=== PATIENT | male | born 1965 | race Caucasian/White ===

== ENCOUNTER 2020-03-07 09:26 | Outpatient (REF) | payer OTHER, SELFPAY ==
[2020-03-07 10:15] LABS: Basophils Percent Auto 0.4 % (0-2); Eosinophils Absolute Auto 0.3 X10*3/uL (0.0-0.4); Eosinophils Percent Auto 4.3 % (0-4); Hematocrit 40.3 % (42-52); Hemoglobin 13.3 g/dl (14.0-18.0); Imm Gran Abs Auto 0.05 X10*3/uL (0.00-0.03); Imm Gran Pct Auto 0.7 % (0.0-0.4); Lymphocytes Absolute Auto 1.5 X10*3/uL (1.2-4.9); Lymphocytes Percent Auto 20.6 % (20-40); Mean Corpuscular Volume 81.7 fL (80-98); Monocytes Absolute Auto 0.9 X10*3/uL (0.1-1.2); Monocytes Percent Auto 12.1 % (2-11); Neutrophils Absolute Auto 4.6 X10*3/uL (2.0-8.3); Neutrophils Percent Auto 61.9 % (45-73); Platelet Count 244 X10*3/uL (160-400); Red Blood Count 4.93 X10*6/uL (4.60-5.80); Red Cell Distribution Width 13.8 % (11.0-16.0); White Blood Count 7.5 X10*3/uL (4.8-10.8)
[2020-03-07 10:17] LABS: MANUAL DIFF FLAG NO
[2020-03-07 10:35] LABS: Alanine Aminotransferase 28 U/L (0-40); Albumin Level 4.5 g/dL (3.5-5.0); Alkaline Phosphatase 72 U/L (39-117); Anion Gap 15 (12-20); Aspartate Amino Transferase 16 U/L (5-37); Bilirubin Total 0.3 mg/dL (0.0-1.0); Blood Urea Nitrogen 15 mg/dL (9-16); Calcium 9.5 mg/dL (8.4-10.2); Carbon Dioxide 27 mmol/L (22-29); Chloride 96 mmol/L (96-108); Cholesterol 214 mg/dL; Estimated Glomerular Filt Rate > 60; Glucose Random 155 mg/dL (60-115); HDL Cholesterol 37 mg/dL; Phosphorus 2.5 mg/dL (2.7-4.5); Potassium 4.9 mmol/l (3.3-5.1); Sodium 133 mmol/L (135-145); Triglycerides 475 mg/dL
[2020-03-07 10:59] LABS: Thyroid Stimulating Hormone 2.31 uIU/mL (0.32-4.0); Vitamin D 25-OH Total 37.2 ng/mL (>30)
[2020-03-07 11:04] LABS: Estimated Average Glucose 140 mg/dL; Hemoglobin A1c % 6.5 %
== END 2020-03-07 09:27 | disposition home or self-care (01) ==
LOC: HO.LAB 09:26
PROVIDERS: PCP Internal Medicine; Visit Provider Internal Medicine
DX: Z00.01 Encounter for general adult medical examination with abnormal findings (principal); E11.65 Type 2 diabetes mellitus with hyperglycemia; E78.00 Pure hypercholesterolemia, unspecified; E83.52 Hypercalcemia; M79.18 Myalgia, other site; R80.9 Proteinuria, unspecified
CPT/HCPCS: 36415; 80053; 80061; 82306; 83036; 84100; 84443; 85025

== ENCOUNTER 2020-03-07 10:24 | Outpatient (REF) | payer OTHER, SELFPAY | END 2020-03-07 10:25 | disposition home or self-care (01) | LOC: HO.LAB 10:24 | PROVIDERS: PCP Internal Medicine; Visit Provider Internal Medicine | DX: Z20.828 Contact with and (suspected) exposure to other viral communicable diseases (principal) | CPT/HCPCS: C9803; U0003 ==

== ENCOUNTER 2020-04-20 14:05 | Outpatient (REF) | payer OTHER, SELFPAY | END 2020-04-20 14:06 | disposition home or self-care (01) | LOC: HO.HAP 14:05 | PROVIDERS: Visit Provider Internal Medicine | DX: Z46.1 Encounter for fitting and adjustment of hearing aid (principal); H90.3 Sensorineural hearing loss, bilateral | CPT/HCPCS: 92593; 99499 ==

== ENCOUNTER 2020-06-07 14:48 | Outpatient (REF) | payer OTHER, SELFPAY ==
[2020-06-07 15:44] LABS: MANUAL DIFF FLAG NO
[2020-06-07 15:52] LABS: Basophils Percent Auto 0.5 % (0-2); Eosinophils Absolute Auto 0.3 X10*3/uL (0.0-0.4); Eosinophils Percent Auto 4.3 % (0-4); Hematocrit 42.1 % (42-52); Hemoglobin 13.7 g/dl (14.0-18.0); Imm Gran Abs Auto 0.04 X10*3/uL (0.00-0.03); Imm Gran Pct Auto 0.6 % (0.0-0.4); Lymphocytes Absolute Auto 1.5 X10*3/uL (1.2-4.9); Lymphocytes Percent Auto 22.2 % (20-40); Mean Corpuscular HGB Conc 32.5 g/dl (31.0-36.0); Mean Corpuscular Hemoglobin 27.2 pg (27.0-33.0); Mean Corpuscular Volume 83.5 fL (80-98); Mean Platelet Volume 9.5 fL (9.4-12.4); Monocytes Absolute Auto 0.7 X10*3/uL (0.1-1.2); Monocytes Percent Auto 10.4 % (2-11); Neutrophils Absolute Auto 4.1 X10*3/uL (2.0-8.3); Platelet Count 251 X10*3/uL (160-400); Red Blood Count 5.04 X10*6/uL (4.60-5.80); Red Cell Distribution Width 13.8 % (11.0-16.0); White Blood Count 6.5 X10*3/uL (4.8-10.8)
[2020-06-07 16:00] LABS: Estimated Average Glucose 157 mg/dL; Hemoglobin A1c % 7.1 %
[2020-06-07 16:21] LABS: Alanine Aminotransferase 34 U/L (0-40); Albumin Level 4.7 g/dL (3.5-5.0); Alkaline Phosphatase 56 U/L (39-117); Anion Gap 17 (12-20); Aspartate Amino Transferase 24 U/L (5-37); Bilirubin Total 0.4 mg/dL (0.0-1.0); Blood Urea Nitrogen 22 mg/dL (9-16); Calcium 9.9 mg/dL (8.4-10.2); Carbon Dioxide 27 mmol/L (22-29); Chloride 97 mmol/L (96-108); Cholesterol 149 mg/dL; Estimated Glomerular Filt Rate 57; Glucose Random 141 mg/dL (60-115); HDL Cholesterol 35 mg/dL; LDL Cholesterol Calculated 46 mg/dl; Potassium 4.9 mmol/L (3.3-5.1); Sodium 136 mmol/L (135-145); Total Protein 7.2 g/dL (6.5-8.0); Triglycerides 342 mg/dL
[2020-06-07 17:40] LABS: Albumin Level 4.7 g/dL (3.5-5.0); Anion Gap 17 (12-20); Blood Urea Nitrogen 23 mg/dL (9-16); Carbon Dioxide 28 mmol/L (22-29); Chloride 96 mmol/L (96-108); Estimated Glomerular Filt Rate 56; Phosphorus 3.8 mg/dL (2.7-4.5); Potassium 4.9 mmol/L (3.3-5.1); Sodium 136 mmol/L (135-145)
[2020-06-07 18:02] LABS: Magnesium 1.4 mg/dL (1.6-2.6)
== END 2020-06-07 14:49 | disposition home or self-care (01) ==
LOC: HO.LAB 14:48
PROVIDERS: PCP Internal Medicine; Referring Provider Internal Medicine Hypertension Specialist; Visit Provider Internal Medicine
DX: E11.65 Type 2 diabetes mellitus with hyperglycemia (principal); I10 Essential (primary) hypertension; M79.18 Myalgia, other site; R80.8 Other proteinuria; R31.29 Other microscopic hematuria; E87.1 Hypo-osmolality and hyponatremia
CPT/HCPCS: 36415; 80051; 80053; 80061; 82040; 82310; 82565; 83036; 83735; 84100; 84520; 85025

== ENCOUNTER 2020-09-04 15:08 | Outpatient (REF) | payer OTHER, SELFPAY ==
[2020-09-04 15:52] LABS: Estimated Average Glucose 166 mg/dL; Hemoglobin A1c % 7.4 %
[2020-09-04 15:56] LABS: Alanine Aminotransferase 39 U/L (0-40); Albumin Level 4.8 g/dL (3.5-5.0); Alkaline Phosphatase 60 U/L (39-117); Anion Gap 15 (12-20); Aspartate Amino Transferase 26 U/L (5-37); Bilirubin Total 0.6 mg/dL (0.0-1.0); Blood Urea Nitrogen 20 mg/dL (9-16); Calcium 10.6 mg/dL (8.4-10.2); Carbon Dioxide 25 mmol/L (22-29); Chloride 97 mmol/L (96-108); Cholesterol 155 mg/dL; Estimated Glomerular Filt Rate > 60; Glucose Random 92 mg/dL (60-115); HDL Cholesterol 39 mg/dL; LDL Cholesterol Calculated 55 mg/dl; Potassium 4.4 mmol/L (3.3-5.1); Sodium 133 mmol/L (135-145); Total Protein 7.5 g/dL (6.5-8.0); Triglycerides 306 mg/dL
== END 2020-09-04 15:09 | disposition home or self-care (01) ==
LOC: HO.LAB 15:08
PROVIDERS: PCP Internal Medicine; Visit Provider Internal Medicine
DX: E11.65 Type 2 diabetes mellitus with hyperglycemia (principal); E78.2 Mixed hyperlipidemia; M67.02 Short Achilles tendon (acquired), left ankle; I10 Essential (primary) hypertension; M54.5 Low back pain; R80.8 Other proteinuria
CPT/HCPCS: 36415; 80053; 80061; 83036

== ENCOUNTER 2020-10-11 13:39 | Outpatient (REF) | payer OTHER, SELFPAY ==
--- NOTE | 2020-10-13 07:46 | MHC.AU.AHA ---
Adult Audiological Evaluation Date of Visit: 10/11/20 Information Management Manager Used: Not Applicable Reason for Appointment: Audiologic re-evaluation in order to determine possible change in hearing ability. Jed notes he needs to increase the volume of his hearing aids every day. Previous Hearing Test Results: 09/30/2018 [facility] Profound rising to severe mixed hearing loss bilaterally. Speech understanding of 64% for the right ear and 60% for the left ear. Ear History: History of Ear Wax Buildup: Both Ears Bothersome Tinnitus/Ringing/Noises in Ears: Both Ears Medical History: Medical History: Diabetes, Dizziness or Unsteadiness, Headache, High Blood Pressure, Stroke Medication List: Metformin, Hydrochlorothiazide, Loratidine, Metoprolol, Rosuvastatin, Irbesartan, Januvia, Multivitamin Hearing Instrument History- Right Ear: Collar Band Creaser: Phonak Model: Unique B 50-UP Serial Number: [id number] Battery Size: 675 Repair Warranty: 01/11/2022 Dispensed By: [facility] Date of Fittin11/09/2018 Hearing Instrument History- Left Ear: Collar Band Creaser: Phonak Model: Unique B 50-UP Serial Number: [id number] Battery Size: 675 Warranty: 01/11/2022 Dispensed By: [facility] Date of Fittin11/09/2018 Otoscopy: Right Ear: Unremarkable Left Ear: Unremarkable Tympanometry: Not performed at today's visit as previous testing has shown normal middle ear function bilaterally Hearing Evaluation: Transducer(s) Used: Insert Earphones Bone Conduction Method: Conventional Audiometry Stimuli Used: Pure Tones Right Ear: Description of Hearing: Profound rising to severe mixed hearing loss Left Ear: Description of Hearing: Profound rising to severe mixed hearing loss Speech Recognition Threshold (SRT): Method Used: Monitored Live Voice Stimuli Used: Spondee Words Right Ear: 75 dB HL Left Ear: 70 dB HL Word Discrimination: Method: Recorded Lists Word Lists Used: NU-6 Right Ear: 60% at 105 dB HL Left Ear: 40% at 105 dB HL 32% at 100 dB HL Most Comfortable Level (MCL): Right Ear: 105 dB HL Left Ear: 105 dB HL Comparison: Compared to the most recent evaluation: Hearing is stable and Word discrimination score has decreased in the left ear. Recommendations: Hearing aid maintenance performed today. Hearing aids reprogrammed to increase volume to Jed's preferred level. Audiological re-evaluation in one year. Will send a reminder card. Diagnosis: Primary Diagnosis: H90.6 Mixed Hearing Loss, Bilateral Services Performed: Comprehensive Audiological Evaluation (CPT 42772) Signature: Provider: Osmany Awad, CCC-A
== END 2020-10-11 13:40 | disposition home or self-care (01) ==
LOC: HO.SH 13:39
PROVIDERS: Visit Provider Internal Medicine
DX: H90.6 Mixed conductive and sensorineural hearing loss, bilateral (principal)
CPT/HCPCS: 92557

== ENCOUNTER 2020-10-18 11:47 | Outpatient (REF) | payer OTHER, SELFPAY ==
[2020-10-19 02:36] LABS: CT PCR NOT DETECTED (Not Detect.); NG PCR NOT DETECTED (Not Detect.)
[2020-10-19 11:44] LABS: HIV AB/AG Nonreactive (Nonreactive); HIV Num 1 0.06 S/CO (0.00-0.99)
[2020-10-23 00:46] LABS: Treponema pallidum Ab FTA ABS Nonreactive (Nonreactive)
== END 2020-10-18 11:48 | disposition home or self-care (01) ==
LOC: HO.LAB 11:47
PROVIDERS: PCP Internal Medicine; Visit Provider Internal Medicine
DX: Z11.3 Encounter for screening for infections with a predominantly sexual mode of transmission (principal); Z11.4 Encounter for screening for human immunodeficiency virus [HIV]; I10 Essential (primary) hypertension; Z72.53 High risk bisexual behavior
CPT/HCPCS: 86780; 87389; 87491; 87591

== ENCOUNTER 2020-11-18 00:21 | Emergency (ER) | payer OTHER, SELFPAY ==
[2020-11-18 00:24] VITALS: BP 154/92; PULSE 101; RESP 18; TEMP 36.3; O2SAT 98; BMI 27.5
[2020-11-18 00:37] LABS: Glucose, Whole Blood 170 mg/dL (60-115)
[2020-11-18 01:33] LABS: MANUAL DIFF FLAG NO
[2020-11-18 01:35] LABS: Basophils Percent Auto 0.3 % (0-2); Eosinophils Absolute Auto 0.3 X10*3/uL (0.0-0.4); Hematocrit 37.3 % (42-52); Hemoglobin 12.8 g/dl (14.0-18.0); Imm Gran Abs Auto 0.03 X10*3/uL (0.00-0.03); Imm Gran Pct Auto 0.4 % (0.0-0.4); Lymphocytes Absolute Auto 1.7 X10*3/uL (1.2-4.9); Lymphocytes Percent Auto 21.6 % (20-40); Mean Corpuscular HGB Conc 34.3 g/dl (31.0-36.0); Mean Corpuscular Hemoglobin 27.8 pg (27.0-33.0); Mean Corpuscular Volume 81.1 fL (80-98); Mean Platelet Volume 9.2 fL (9.4-12.4); Monocytes Absolute Auto 0.8 X10*3/uL (0.1-1.2); Monocytes Percent Auto 9.9 % (2-11); Neutrophils Absolute Auto 5.1 X10*3/uL (2.0-8.3); Neutrophils Percent Auto 63.8 % (45-73); Platelet Count 217 X10*3/uL (160-400); Red Cell Distribution Width 13.4 % (11.0-16.0); White Blood Count 7.9 X10*3/uL (4.8-10.8)
[2020-11-18 01:35] LABS: Glucose Urine UA NEG (NEG); Leukocyte Esterase Urine NEG (NEG); Nitrite Urine NEG (NEG); Urine Blood NEG (NEG); Urine Ketones NEG (NEG); Urine Protein NEG (NEG-TRACE)
[2020-11-18 01:36] LABS: Appearance Urine CLEAR; Color Urine YELLOW; UACC Culture Trigger NO
[2020-11-18 02:07] LABS: Alanine Aminotransferase 28 U/L (0-40); Albumin Level 4.3 g/dL (3.5-5.0); Alkaline Phosphatase 57 U/L (39-117); Anion Gap 15 (12-20); Aspartate Amino Transferase 21 U/L (5-37); Bilirubin Total 0.3 mg/dL (0.0-1.0); Blood Urea Nitrogen 16 mg/dL (9-16); Calcium 9.2 mg/dL (8.4-10.2); Carbon Dioxide 26 mmol/L (22-29); Chloride 90 mmol/L (96-108); Creatinine Clr Calc Pharmacy 63.9; Estimated Glomerular Filt Rate > 60; Glucose Random 184 mg/dL (60-115); Potassium 3.9 mmol/L (3.3-5.1); Sodium 127 mmol/L (135-145); Total Protein 6.9 g/dL (6.5-8.0)
--- NOTE | 2020-11-18 03:18 | ECG_ITS ---
Test Reason : DIZZINESS Blood Pressure : / mmHG Vent. Rate : 079 BPM Atrial Rate : 079 BPM P-R Int : 124 ms QRS Dur : 080 ms QT Int : 362 ms P-R-T Axes : 009 023 060 degrees QTc Int : 415 ms Normal sinus rhythm Normal ECG When compared with ECG of 07-APR-2015 06:46, No significant change was found Referred By: Ana Briggs Electronically Signed By:Ivan Saunders
--- NOTE | 2020-11-18 03:24 | ED.GENADULT ---
HPI - General Adult General Chief complaint: Dizziness Stated complaint: can't swallow, light headedness Time Seen by Provider: 11/18/20 01:52 Source: patient Mode of arrival: ambulatory Limitations: no limitations History of Present Illness HPI narrative: Patient comes emergency room complaining of dizziness. Patient states that whenever he moves his head up and down or right left, he feels a bit unsteady, when he is at rest not moving patient is completely asymptomatic. Patient states that earlier today around 15:00 he was eating [place] food, he nearly choked but was able to cough up the food. Then, 3 hours later he started having the dizziness episodes. Patient denies chest pain, no shortness of breath. Related Data Previous Rx's Medication Instructions Recorded meclizine 25 mg tablet 25 mg PO TID PRN #14 tab 11/18/20 Allergies Allergy/AdvReac Type Severity Reaction Status Date / Time No Known Allergies Allergy Verified 11/18/20 00:23 [No Known Allergies*] Review of Systems Review of Systems: Constitutional : No Weight loss, No Fever, No Chills, No Night Sweats, No Fatigue, No Malaise ENT/Mouth : No Hearing loss, No Ear Pain, No Nasal Congestion, No Sinus Pain, No Hoarseness, No sore throat, No Rhinorrhea, No Swallowing Difficulty Eyes: No Eye Pain, No Swelling, No Redness, No Foreign Body, No Discharge, No Vision Changes Cardiovascular : No Chest Pain, No SOB, No Dyspnea on Exertion, No Orthopnea, No Edema, No Palpitations Respiratory : No Cough, No Sputum, No Wheezing, No Smoke Exposure, No Dyspnea Gastrointestinal : No Nausea, No Vomiting, No Diarrhea, No Constipation, No abdominal Pain, No Hematochezia, No Melena Genitourinary : no irregular bleeding, No Dysuria, No Urinary Frequency, No Hematuria, No Urinary Incontinence, No Urgency, No Flank Pain, No Urinary Flow Changes, No Hesitancy Musculoskeletal : No joint pain, No Myalgias, No Joint Swelling Skin : No Skin Lesions, No rash Neuro : No Weakness, No Numbness, No Paresthesias, No Loss of Consciousness, complaining of dizziness with head movement, No Headache Psych : No Anxiety/Panic, No Depression, No SI/HI/AH/VH, No Social Issues, Heme/Lymph: No Bruising, No Bleeding,No Lymphadenopathy Endocrine : No Polyuria, No Polydipsia, No Temperature Intolerance [facility] Social History Social History Patient Tobacco Use Status: Never used Tobacco Advance Directives: No Physical Exam Vital Signs: Vital Signs: Last Vital Signs Temp 98.1 F 11/18/20 04:04 Pulse 75 11/18/20 04:07 Resp 15 11/18/20 04:04 BP 156/80 H 11/18/20 04:07 Pulse Ox 100 11/18/20 04:04 Body Mass Index 27.5 Const: Other: Appearance: Alert. Oriented X3. No acute distress. Eyes: Pupils equal, round and reactive to light. No nystagmus ENT: Pharynx normal. Neck: Normal inspection. Neck supple. No lymph nodes noted. No crepitus CVS: Normal heart rate and rhythm. Pulses normal. Normal S1 and S2 Respiratory: No respiratory distress. Breath sounds normal. No Wheezing. No rales Abdomen: Soft and nontender. No rigidity. No distention. good BS x4 Skin: Skin warm and dry. Normal skin color. Normal skin turgor. Extremities: No lower extremity edema. No lower extremity edema. No Lacerations. No Rash Neuro: Oriented X 3. No motor deficit. No sensory deficit. Moving all extermities. No slurred speech. Course Course Course Narrative: I discussed with the patient that his sodium is 127, we will go ahead and give him fluids, meclizine for the dizziness, and then repeat labs. second BMP results pending. Likely dc home, pt asymptomatic at this time. sign out given to Dr. Vidal Pt ambulatory with normal gait, is symptomatic Medical Decision Making Lab Data Result diagrams: 11/18/20 01:23 11/18/20 01:23 Labs: Lab Results 11/18/20 11/18/20 11/18/20 Range/Units 00:31 01:23 01:23 WBC 7.9 (4.8-10.8) X10*3/uL RBC 4.60 (4.60-5.80) X10*6/uL Hgb 12.8 L (14.0-18.0) g/dl Hct 37.3 L (42-52) % MCV 81.1 (80-98) fL MCH 27.8 (27.0-33.0) pg MCHC 34.3 (31.0-36.0) g/dl RDW 13.4 (11.0-16.0) % Plt Count 217 (160-400) X10*3/uL MPV 9.2 L (9.4-12.4) fL Immature Gran % (Auto) 0.4 (0.0-0.4) % Neut % (Auto) 63.8 (45-73) % Lymph % (Auto) 21.6 (20-40) % [place] % (Auto) 9.9 (2-11) % Eos % (Auto) 4.0 (0-4) % Baso % (Auto) 0.3 (0-2) % Lymph # (Auto) 1.7 (1.2-4.9) X10*3/uL [place] # (Auto) 0.8 (0.1-1.2) X10*3/uL Eos # (Auto) 0.3 (0.0-0.4) X10*3/uL Baso # (Auto) 0.0 (0.0-0.2) X10*3/uL Abs Immat Gran (auto) 0.03 (0.00-0.03) X10*3/uL Absolute Neuts (auto) 5.1 (2.0-8.3) X10*3/uL Absolute Nucleated RBC 0.000 (0.0-0.012) X10*3/uL Nucleated RBC % (auto) 0.0 (0.0-0.2) /100WBC Sodium 127 L (135-145) mmol/L Potassium 3.9 (3.3-5.1) mmol/L Chloride 90 L (96-108) mmol/L Carbon Dioxide 26 (22-29) mmol/L Anion Gap 15 (12-20) BUN 16 (9-16) mg/dL Creatinine 1.15 (0.5-1.4) mg/dL Estim Creat Clear Calc 63.9 Estimated GFR > 60 POC Glucose 170 H (60-115) mg/dL Random Glucose 184 H D (60-115) mg/dL Calcium 9.2 D (8.4-10.2) mg/dL Total Bilirubin 0.3 (0.0-1.0) mg/dL AST 21 (5-37) U/L ALT 28 (0-40) U/L Alkaline Phosphatase 57 (39-117) U/L Troponin I High Sens (<3.5-35.0) ng/L Total Protein 6.9 (6.5-8.0) g/dL Albumin 4.3 (3.5-5.0) g/dL Urine Color Urine Appearance Urine pH (5.0-8.0) Ur Specific [place] (1.005-1.025) Urine Protein (NEG-TRACE) MG/DL Urine Glucose (UA) (NEG) MG/DL Urine Ketones (NEG) MG/DL Urine Blood (NEG) Urine Nitrite (NEG) Ur Leukocyte Esterase (NEG) 11/18/20 11/18/20 Range/Units 01:23 01:29 WBC (4.8-10.8) X10*3/uL RBC (4.60-5.80) X10*6/uL Hgb (14.0-18.0) g/dl Hct (42-52) % MCV (80-98) fL MCH (27.0-33.0) pg MCHC (31.0-36.0) g/dl RDW (11.0-16.0) % Plt Count (160-400) X10*3/uL MPV (9.4-12.4) fL Immature Gran % (Auto) (0.0-0.4) % Neut % (Auto) (45-73) % Lymph % (Auto) (20-40) % [place] % (Auto) (2-11) % Eos % (Auto) (0-4) % Baso % (Auto) (0-2) % Lymph # (Auto) (1.2-4.9) X10*3/uL [place] # (Auto) (0.1-1.2) X10*3/uL Eos # (Auto) (0.0-0.4) X10*3/uL Baso # (Auto) (0.0-0.2) X10*3/uL Abs Immat Gran (auto) (0.00-0.03) X10*3/uL Absolute Neuts (auto) (2.0-8.3) X10*3/uL Absolute Nucleated RBC (0.0-0.012) X10*3/uL Nucleated RBC % (auto) (0.0-0.2) /100WBC Sodium (135-145) mmol/L Potassium (3.3-5.1) mmol/L Chloride (96-108) mmol/L Carbon Dioxide (22-29) mmol/L Anion Gap (12-20) BUN (9-16) mg/dL Creatinine (0.5-1.4) mg/dL Estim Creat Clear Calc Estimated GFR POC Glucose (60-115) mg/dL Random Glucose (60-115) mg/dL Calcium (8.4-10.2) mg/dL Total Bilirubin (0.0-1.0) mg/dL AST (5-37) U/L ALT (0-40) U/L Alkaline Phosphatase (39-117) U/L Troponin I High Sens 4.3 (<3.5-35.0) ng/L Total Protein (6.5-8.0) g/dL Albumin (3.5-5.0) g/dL Urine Color YELLOW Urine Appearance CLEAR Urine pH 6.0 (5.0-8.0) Ur Specific [place] 1.010 (1.005-1.025) Urine Protein NEG (NEG-TRACE) MG/DL Urine Glucose (UA) NEG (NEG) MG/DL Urine Ketones NEG (NEG) MG/DL Urine Blood NEG (NEG) Urine Nitrite NEG (NEG) Ur Leukocyte Esterase NEG (NEG) ECG Data Attestation: I personally reviewed and interpreted this ECG as follows: (Normal sinus rhythm, heart rate 79, no ST segment depression or elevation, no T-wave inversion, QTC 415) Discharge Plan Discharge Clinical Impression: Acute hyponatremia, Dizziness Patient Disposition: Home, Self-Care Instructions: Hyponatremia (ED), Dizziness (ED) Additional Instructions: Please follow-up with your primary care physician tomorrow. If you have any worsening or new symptoms, please return to the emergency room or call 911 Prescriptions: New meclizine 25 mg tablet 25 mg PO TID PRN (Reason: dizziness) Qty: 14 RF: 0
[2020-11-18] MEDS: Meclizine HCl 25 MG TABLET 50 MG PO (03:44)
[2020-11-18] MEDS: 0.9 % Sodium Chloride 1,000 ML 999 ML IVCONT (03:44)
[2020-11-18 03:49] LABS: Troponin-I High Sensitivity 4.3 ng/L (<3.5-35.0)
[2020-11-18 04:02] VITALS: BP 146/79; PULSE 75
[2020-11-18 04:04] VITALS: BP 146/79; PULSE 74; RESP 15; TEMP 36.7; O2SAT 100
[2020-11-18 04:06] VITALS: BP 153/90; PULSE 79
[2020-11-18 04:07] VITALS: BP 156/80; PULSE 75
--- NOTE | 2020-11-18 05:15 | PC.NURSE ---
PT AMB TO BATHROOM STEADY GAIT.
--- NOTE | 2020-11-18 05:54 | PC.NURSE ---
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
[2020-11-18 06:59] LABS: Anion Gap 13 (12-20); Blood Urea Nitrogen 13 mg/dL (9-16); Calcium 8.7 mg/dL (8.4-10.2); Carbon Dioxide 26 mmol/L (22-29); Chloride 95 mmol/L (96-108); Creatinine Clr Calc Pharmacy 78.2; Estimated Glomerular Filt Rate > 60; Glucose Random 114 mg/dL (60-115); Potassium 3.5 mmol/L (3.3-5.1); Sodium 130 mmol/L (135-145)
[2020-11-18 08:00] VITALS: BP 131/71; PULSE 70; O2SAT 99
== END 2020-11-18 10:30 | disposition home or self-care (01) ==
PROVIDERS: Emergency Medicine; Emergency Provider Emergency Medicine Emergency Medical Services
DX: R42 Dizziness and giddiness (principal); E87.1 Hypo-osmolality and hyponatremia
CPT/HCPCS: 36415; 80048; 80053; 81003; 82947; 84484; 85025; 93005; 96360; 99284; 99285

== ENCOUNTER 2020-12-19 14:51 | Outpatient (REF) | payer OTHER, SELFPAY ==
[2020-12-19 15:31] LABS: MANUAL DIFF FLAG NO
[2020-12-19 15:35] LABS: Basophils Percent Auto 0.4 % (0-2); Eosinophils Absolute Auto 0.3 X10*3/uL (0.0-0.4); Eosinophils Percent Auto 5.1 % (0-4); Hematocrit 41.4 % (42-52); Hemoglobin 13.9 g/dl (14.0-18.0); Imm Gran Abs Auto 0.03 X10*3/uL (0.00-0.03); Imm Gran Pct Auto 0.4 % (0.0-0.4); Lymphocytes Absolute Auto 1.2 X10*3/uL (1.2-4.9); Mean Corpuscular HGB Conc 33.6 g/dl (31.0-36.0); Mean Corpuscular Hemoglobin 27.6 pg (27.0-33.0); Mean Corpuscular Volume 82.1 fL (80-98); Mean Platelet Volume 9.4 fL (9.4-12.4); Monocytes Absolute Auto 0.6 X10*3/uL (0.1-1.2); Monocytes Percent Auto 8.9 % (2-11); Neutrophils Absolute Auto 4.5 X10*3/uL (2.0-8.3); Neutrophils Percent Auto 67.2 % (45-73); Platelet Count 254 X10*3/uL (160-400); Red Blood Count 5.04 X10*6/uL (4.60-5.80); Red Cell Distribution Width 13.7 % (11.0-16.0); White Blood Count 6.7 X10*3/uL (4.8-10.8)
[2020-12-19 15:43] LABS: Estimated Average Glucose 163 mg/dL; Hemoglobin A1c % 7.3 %
[2020-12-19 16:17] LABS: Alanine Aminotransferase 31 U/L (0-40); Alkaline Phosphatase 55 U/L (39-117); Anion Gap 15 (12-20); Blood Urea Nitrogen 19 mg/dL (9-16); Chloride 98 mmol/L (96-108); Cholesterol 154 mg/dL; HDL Cholesterol 35 mg/dL; Potassium 4.3 mmol/L (3.3-5.1); Total Protein 7.2 g/dL (6.5-8.0)
[2020-12-19 16:21] LABS: Albumin Level 4.7 g/dL (3.5-5.0); Aspartate Amino Transferase 21 U/L (5-37); Bilirubin Total 0.6 mg/dL (0.0-1.0); Calcium 10.1 mg/dL (8.4-10.2); Carbon Dioxide 26 mmol/L (22-29); Estimated Glomerular Filt Rate 57; Glucose Random 285 mg/dL (60-115); LDL Cholesterol Calculated 45 mg/dl; Sodium 135 mmol/L (135-145); Triglycerides 373 mg/dL
[2020-12-19 16:38] LABS: Creatinine Urine 87.64 mg/dL; Microalbum/Creatinine Ratio Ur 31.9 ug/mg cr
== END 2020-12-19 14:52 | disposition home or self-care (01) ==
LOC: HO.LAB 14:51
PROVIDERS: PCP Internal Medicine; Visit Provider Internal Medicine
DX: E11.9 Type 2 diabetes mellitus without complications (principal); E78.2 Mixed hyperlipidemia; I10 Essential (primary) hypertension; R80.8 Other proteinuria
CPT/HCPCS: 36415; 80053; 80061; 82043; 83036; 85025

== ENCOUNTER 2020-12-26 15:01 | Outpatient (REF) | payer OTHER, SELFPAY ==
[2020-12-26 17:10] LABS: Creatinine Urine 158.24 mg/dL; Total Protein Urine Random < 7 mg/dL (<12)
[2020-12-26 17:11] LABS: Anion Gap 14 (12-20); Blood Urea Nitrogen 29 mg/dL (9-16); Calcium 10.4 mg/dL (8.4-10.2); Carbon Dioxide 28 mmol/L (22-29); Chloride 102 mmol/L (96-108); Estimated Glomerular Filt Rate 46; Potassium 4.7 mmol/L (3.3-5.1); Sodium 139 mmol/L (135-145)
[2020-12-28 21:22] LABS: Prot Elec - Albumin 4.2 g/dL (3.8-4.8); Prot Elec - Alpha1 0.3 g/dL (0.2-0.3); Prot Elec - Alpha2 0.7 g/dL (0.5-0.9); Prot Elec - Beta 1 0.4 g/dL (0.4-0.6); Prot Elec - Beta 2 0.2 g/dL (0.2-0.5); Prot Elec - Gamma 0.8 g/dL (0.8-1.7); Prot Elec - Total Protein 6.6 g/dL (6.1-8.1)
== END 2020-12-26 15:02 | disposition home or self-care (01) ==
LOC: HO.LAB 15:01
PROVIDERS: PCP Internal Medicine; Visit Provider Internal Medicine Hypertension Specialist
DX: R31.29 Other microscopic hematuria (principal); N18.2 Chronic kidney disease, stage 2 (mild)
CPT/HCPCS: 80051; 82310; 82565; 84156; 84165; 84520; 86335

== ENCOUNTER 2021-03-06 09:54 | Outpatient (REF) | payer OTHER, SELFPAY ==
[2021-03-06 10:57] LABS: Alanine Aminotransferase 30 U/L (0-40); Albumin Level 4.5 g/dL (3.5-5.0); Alkaline Phosphatase 67 U/L (39-117); Anion Gap 12 (12-20); Aspartate Amino Transferase 21 U/L (5-37); Bilirubin Total 0.3 mg/dL (0.0-1.0); Blood Urea Nitrogen 17 mg/dL (9-16); Calcium 9.9 mg/dL (8.4-10.2); Carbon Dioxide 29 mmol/L (22-29); Chloride 103 mmol/L (96-108); Estimated Glomerular Filt Rate > 60; Glucose Random 143 mg/dL (60-115); Potassium 4.6 mmol/L (3.3-5.1); Sodium 139 mmol/L (135-145); Total Protein 7.1 g/dL (6.5-8.0)
[2021-03-06 11:19] LABS: Vitamin D 25-OH Total 57.1 ng/mL (>30)
[2021-03-07 13:22] LABS: PTHI 36 pg/mL (14-64)
== END 2021-03-06 09:55 | disposition home or self-care (01) ==
LOC: HO.LAB 09:54
PROVIDERS: PCP Internal Medicine; Visit Provider Internal Medicine Hypertension Specialist
DX: E87.1 Hypo-osmolality and hyponatremia (principal); R31.29 Other microscopic hematuria
CPT/HCPCS: 36415; 80053; 82306; 83970

== ENCOUNTER 2021-03-12 14:31 | Outpatient (REF) | payer OTHER, SELFPAY ==
[2021-03-12 14:52] LABS: MANUAL DIFF FLAG NO
[2021-03-12 15:06] LABS: Basophils Percent Auto 0.4 % (0-2); Eosinophils Absolute Auto 0.3 X10*3/uL (0.0-0.4); Eosinophils Percent Auto 6.5 % (0-4); Hematocrit 43.3 % (42.0-52.0); Hemoglobin 14.2 g/dl (14.0-18.0); Imm Gran Abs Auto 0.02 X10*3/uL (0.00-0.03); Imm Gran Pct Auto 0.4 % (0.0-0.4); Lymphocytes Absolute Auto 0.8 X10*3/uL (1.2-4.9); Lymphocytes Percent Auto 16.5 % (20-40); Mean Corpuscular HGB Conc 32.8 g/dl (31.0-36.0); Mean Corpuscular Hemoglobin 27.3 pg (27.0-33.0); Mean Corpuscular Volume 83.3 fL (80.0-98.0); Mean Platelet Volume 9.3 fL (9.4-12.4); Monocytes Absolute Auto 0.7 X10*3/uL (0.1-1.2); Monocytes Percent Auto 13.9 % (2-11); Neutrophils Absolute Auto 3.1 x10*3/uL (2.0-8.3); Neutrophils Percent Auto 62.3 % (45-73); Platelet Count 212 X10*3/uL (160-400); Red Cell Distribution Width 13.5 % (11.0-16.0); White Blood Count 4.9 X10*3/uL (4.8-10.8)
[2021-03-12 15:15] LABS: Estimated Average Glucose 143 mg/dL; Hemoglobin A1c % 6.6 %
[2021-03-12 15:29] LABS: Alanine Aminotransferase 31 U/L (0-40); Albumin Level 4.4 g/dL (3.5-5.0); Alkaline Phosphatase 60 U/L (39-117); Anion Gap 13 (12-20); Aspartate Amino Transferase 24 U/L (5-37); Bilirubin Total 0.3 mg/dL (0.0-1.0); Blood Urea Nitrogen 19 mg/dL (9-16); Calcium 9.8 mg/dL (8.4-10.2); Carbon Dioxide 27 mmol/L (22-29); Chloride 102 mmol/L (96-108); Cholesterol 164 mg/dL; Estimated Glomerular Filt Rate > 60; Glucose Random 179 mg/dL (60-115); HDL Cholesterol 34 mg/dL; LDL Cholesterol Calculated 79 mg/dl; Potassium 4.6 mmol/L (3.3-5.1); Sodium 137 mmol/L (135-145); Total Protein 7.1 g/dL (6.5-8.0); Triglycerides 259 mg/dL
[2021-03-12 15:41] LABS: Creatinine Urine 164.49 mg/dL; Microalbum/Creatinine Ratio Ur 113.6 ug/mg cr
== END 2021-03-12 14:32 | disposition home or self-care (01) ==
LOC: HO.LAB 14:31
PROVIDERS: PCP Internal Medicine; Visit Provider Internal Medicine
DX: Z00.00 Encounter for general adult medical examination without abnormal findings (principal); E11.9 Type 2 diabetes mellitus without complications; E78.00 Pure hypercholesterolemia, unspecified; I10 Essential (primary) hypertension
CPT/HCPCS: 36415; 80053; 80061; 82043; 83036; 85025

== ENCOUNTER 2021-04-04 13:57 | Outpatient (REF) | payer OTHER, SELFPAY | END 2021-04-04 13:58 | disposition home or self-care (01) | LOC: HO.HAP 13:57 | PROVIDERS: Visit Provider Internal Medicine | DX: Z13.89 Encounter for screening for other disorder (principal) ==

== ENCOUNTER 2021-06-19 11:55 | Outpatient (REF) | payer OTHER, SELFPAY ==
[2021-06-19 12:34] LABS: Estimated Average Glucose 143 mg/dL; Hemoglobin A1c % 6.6 %
[2021-06-19 13:23] LABS: Alanine Aminotransferase 31 U/L (0-40); Albumin Level 4.6 g/dL (3.5-5.0); Alkaline Phosphatase 63 U/L (39-117); Anion Gap 13 (12-20); Aspartate Amino Transferase 21 U/L (5-37); Bilirubin Total 0.4 mg/dL (0.0-1.0); Blood Urea Nitrogen 20 mg/dL (9-16); Calcium 10.1 mg/dL (8.4-10.2); Carbon Dioxide 28 mmol/L (22-29); Chloride 101 mmol/L (96-108); Estimated Glomerular Filt Rate > 60; Glucose Random 72 mg/dL (60-115); Potassium 4.5 mmol/L (3.3-5.1)
[2021-06-19 13:28] LABS: Sodium 137 mmol/L (135-145); Total Protein 7.1 g/dL (6.5-8.0)
== END 2021-06-19 11:56 | disposition home or self-care (01) ==
LOC: HO.LAB 11:55
PROVIDERS: PCP Internal Medicine; Visit Provider Internal Medicine
DX: E11.9 Type 2 diabetes mellitus without complications (principal); E78.00 Pure hypercholesterolemia, unspecified; I10 Essential (primary) hypertension; R80.8 Other proteinuria
CPT/HCPCS: 36415; 80053; 83036

== ENCOUNTER 2021-07-03 11:38 | Outpatient (REF) | payer OTHER, SELFPAY ==
[2021-07-03 11:54] LABS: MANUAL DIFF FLAG NO
[2021-07-03 12:02] LABS: Basophils Percent Auto 0.4 % (0-2); Eosinophils Absolute Auto 0.3 X10*3/uL (0.0-0.4); Eosinophils Percent Auto 4.4 % (0-4); Hematocrit 42.7 % (42.0-52.0); Imm Gran Abs Auto 0.02 X10*3/uL (0.00-0.03); Imm Gran Pct Auto 0.3 % (0.0-0.4); Lymphocytes Absolute Auto 1.5 X10*3/uL (1.2-4.9); Lymphocytes Percent Auto 21.2 % (20-40); Mean Corpuscular HGB Conc 32.8 g/dl (31.0-36.0); Mean Corpuscular Hemoglobin 26.9 pg (27.0-33.0); Mean Corpuscular Volume 82.1 fL (80.0-98.0); Mean Platelet Volume 9.3 fL (9.4-12.4); Monocytes Absolute Auto 0.8 X10*3/uL (0.1-1.2); Monocytes Percent Auto 11.2 % (2-11); Neutrophils Absolute Auto 4.4 x10*3/uL (2.0-8.3); Neutrophils Percent Auto 62.5 % (45-73); Platelet Count 232 X10*3/uL (160-400); Red Cell Distribution Width 14.2 % (11.0-16.0)
[2021-07-03 12:35] LABS: Anion Gap 14 (12-20); Blood Urea Nitrogen 21 mg/dL (9-16); Calcium 10.3 mg/dL (8.4-10.2); Carbon Dioxide 27 mmol/L (22-29); Chloride 101 mmol/L (96-108); Estimated Glomerular Filt Rate > 60; Glucose Random 69 mg/dL (60-115); Potassium 4.7 mmol/L (3.3-5.1); Sodium 137 mmol/L (135-145)
== END 2021-07-03 11:39 | disposition home or self-care (01) ==
LOC: HO.LAB 11:38
PROVIDERS: PCP Internal Medicine; Visit Provider Internal Medicine Hypertension Specialist
DX: E87.1 Hypo-osmolality and hyponatremia (principal); I10 Essential (primary) hypertension
CPT/HCPCS: 36415; 80048; 85025

== ENCOUNTER 2021-09-03 13:40 | Outpatient (REF) | payer OTHER, SELFPAY ==
[2021-09-03 14:34] LABS: Estimated Average Glucose 134 mg/dL; Hemoglobin A1c % 6.3 %
[2021-09-03 14:54] LABS: Alanine Aminotransferase 29 U/L (0-40); Albumin Level 4.4 g/dL (3.5-5.0); Alkaline Phosphatase 60 U/L (39-117); Anion Gap 16 (12-20); Aspartate Amino Transferase 20 U/L (5-37); Bilirubin Total 0.3 mg/dL (0.0-1.0); Blood Urea Nitrogen 14 mg/dL (9-16); Carbon Dioxide 25 mmol/L (22-29); Chloride 101 mmol/L (96-108); Estimated Glomerular Filt Rate > 60; Glucose Random 118 mg/dL (60-115); Potassium 4.9 mmol/L (3.3-5.1); Sodium 137 mmol/L (135-145); Total Protein 6.9 g/dL (6.5-8.0)
== END 2021-09-03 13:41 | disposition home or self-care (01) ==
LOC: HO.LAB 13:40
PROVIDERS: PCP Internal Medicine; Visit Provider Internal Medicine
DX: E11.9 Type 2 diabetes mellitus without complications (principal); E78.00 Pure hypercholesterolemia, unspecified; I10 Essential (primary) hypertension; R80.8 Other proteinuria
CPT/HCPCS: 36415; 80053; 83036

== ENCOUNTER 2021-11-14 18:32 | Emergency (ER) | payer OTHER, SELFPAY ==
[2021-11-14 19:55] VITALS: BP 168/79; PULSE 93; RESP 18; TEMP 36.6; O2SAT 96; BMI 25.3
[2021-11-14 21:08] LABS: MANUAL DIFF FLAG NO
[2021-11-14 21:15] LABS: Basophils Percent Auto 0.6 % (0-2); Eosinophils Absolute Auto 0.4 X10*3/uL (0.0-0.4); Eosinophils Percent Auto 5.5 % (0-4); Hematocrit 39.7 % (42.0-52.0); Hemoglobin 13.5 g/dl (14.0-18.0); Imm Gran Abs Auto 0.02 X10*3/uL (0.00-0.03); Imm Gran Pct Auto 0.3 % (0.0-0.4); Lymphocytes Absolute Auto 1.9 X10*3/uL (1.2-4.9); Lymphocytes Percent Auto 25.7 % (20-40); Mean Corpuscular Volume 82.4 fL (80.0-98.0); Mean Platelet Volume 9.5 fL (9.4-12.4); Monocytes Absolute Auto 0.8 X10*3/uL (0.1-1.2); Monocytes Percent Auto 10.7 % (2-11); Neutrophils Absolute Auto 4.1 x10*3/uL (2.0-8.3); Neutrophils Percent Auto 57.2 % (45-73); Platelet Count 210 X10*3/uL (160-400); Red Blood Count 4.82 X10*6/uL (4.60-5.80); Red Cell Distribution Width 13.7 % (11.0-16.0); White Blood Count 7.2 X10*3/uL (4.8-10.8)
[2021-11-14 21:33] LABS: Alanine Aminotransferase 25 U/L (0-40); Albumin Level 4.6 g/dL (3.5-5.0); Alkaline Phosphatase 58 U/L (39-117); Anion Gap 15 (12-20); Aspartate Amino Transferase 24 U/L (5-37); Bilirubin Total 0.4 mg/dL (0.0-1.0); Blood Urea Nitrogen 21 mg/dL (9-16); Calcium 9.2 mg/dL (8.4-10.2); Carbon Dioxide 25 mmol/L (22-29); Chloride 100 mmol/L (96-108); Estimated Glomerular Filt Rate 57; Glucose Random 127 mg/dL (60-115); Potassium 4.4 mmol/L (3.3-5.1); Sodium 136 mmol/L (135-145); Total Protein 6.9 g/dL (6.5-8.0)
[2021-11-14 21:34] LABS: Alanine Aminotransferase 25 U/L (0-40); Albumin Level 4.6 g/dL (3.5-5.0); Alkaline Phosphatase 57 U/L (39-117); Aspartate Amino Transferase 24 U/L (5-37); Bilirubin Direct 0.2 mg/dL (0.0-0.5); Bilirubin Total 0.4 mg/dL (0.0-1.0)
--- NOTE | 2021-11-14 23:41 | ED_ITS ---
HPI - Abdominal Pain General Chief Complaint: Abdominal Pain Stated Complaint: lower right sided abd pain Source: patient Mode of arrival: ambulatory Limitations: no limitations History of Present Illness HPI narrative: 56-year-old male presents for 2 days of right lower quadrant abdominal pain radiating to the groin. States that the pain has now resolved since he has been waiting in the emergency department waiting room for 6 hours. He does not report any fevers, chills, chest pain or pressure, palpitations, abdominal distention, dysuria, hematuria, nausea or vomiting. MD elicited complaint: abdominal pain Pertinent past history: none Onset (ago): day(s) (2) Pain Consistency: now resolved Location: RLQ Severity: mild Radiation: none Migration to: no migration Exacerbating factors: nothing Relieving factors: nothing Associated symptoms: denies other symptoms Related Data Previous Rx's Medication Instructions Recorded meclizine 25 mg tablet 25 mg PO TID PRN dizziness #14 tabs 11/18/20 Allergies Allergy/AdvReac Type Severity Reaction Status Date / Time No Known Allergies Allergy Verified 11/14/21 19:55 [No Known Allergies*] Review of Systems Review of Systems Constitutional: No Fever, No Chills ENT/Mouth: No Ear Pain, No Hoarseness, No sore throat Eyes: No Eye Pain, No Swelling, No Redness, No Foreign Body Cardiovascular: No Chest Pain, No SOB Respiratory: No Cough, No Dyspnea Gastrointestinal: No Nausea, No Vomiting, No Diarrhea, positive abdominal Pain Genitourinary: No Dysuria, No Hematuria Musculoskeletal: No joint pain, No Myalgias, No Joint Swelling Skin: No Skin lacerations, No rash Neuro: No Weakness, No Numbness, No Paresthesias, No Loss of Consciousness, No Dizziness, No Headache Psych: No Anxiety/Panic, No Depression Heme/Lymph: no easy bruising, no Lymphadenopathy Endocrine: No Polyuria, No Polydipsia Yes all other systems are reviewed and are negative PMFSH Past Medical History Attestation statement: The following information was validated with the patient. Source: old records reviewed Social History Social History Alcohol intake: current Alcohol intake frequency: holidays/special occasions only Patient Tobacco Use Status: Never used Tobacco Use of substances other than those prescribed or required for medical reasons: No Advance Directives: No Advance Directives Information Provided: No Physical Exam ED Vital Signs: Vital Signs - 24 hr 11/14/21 19:55 11/15/21 00:01 Temperature 97.9 F Pulse Rate 93 78 Respiratory Rate 18 16 Blood Pressure 168/79 H 153/76 H Pulse Oximetry 96 99 Oxygen Delivery Method Room Air Room Air BMI result Body Mass Index 25.3 Appearance: Alert. Oriented X3. No acute distress. Eyes: Pupils equal, round and reactive to light. ENT: Pharynx normal. Neck: Normal inspection. Neck supple. CVS: Normal heart rate and rhythm. Pulses normal. Respiratory: No respiratory distress. Breath sounds normal. Abdomen: Soft and nontender. Negative Shirley, McBurney, Rovsing and psoas. Skin: Skin warm and dry. Normal skin color. Normal skin turgor. Extremities: No lower extremity edema. Gait well-balanced well coordinated. Neuro: No motor deficit. No sensory deficit. Cranial nerves 2-12 intact. Course Course Course Narrative: 56-year-old male presents with 2 days of intermittent right lower quadrant abdominal pain that has now resolved. States that the pain was a dull ache, and radiated to his groin. He does not report fevers, chills, dysuria, hematuria. Denies nausea and vomiting. Is able to eat and drink without difficulty. Lab values were drawn while patient was in the emergency department waiting room and are unremarkable. BUN is 21 but patient is able to take p.o. fluids. I do not feel IV fluid resuscitation is necessary at this time. Physical exam is unremarkable. Abdominal exam is negative. Negative psoas, obturator, McBurney's and Shirley's sign. Patient is afebrile, appears nontoxic, and vital signs are stable within normal limits. Low likelihood of appendicitis at this time as labs are normal and physical exam is unremarkable. Patient also reports no physical pain at this time. I did discuss plan with patient, at this time imaging is not recommended. Patient agrees with plan of care. Verbalized understanding of signs symptoms indicate need for emergent intervention. Verbalizes agreement with plan of care discharge home. MDM - Abdominal Pain Differential Diagnosis Differential diagnosis: Likely abdominal pain, acute appendicitis, calculus of kidney and diverticulitis Medical Records Attestation: I reviewed the patient's medical records. Lab Data Attestation: I reviewed the patient's lab results. Result diagrams: 11/14/21 21:04 11/14/21 21:04 Labs: Lab Results 11/14/21 11/14/21 11/14/21 Range/Units 21:04 21:04 21:04 WBC 7.2 (4.8-10.8) X10*3/uL RBC 4.82 (4.60-5.80) X10*6/uL Hgb 13.5 L (14.0-18.0) g/dl Hct 39.7 L (42.0-52.0) % MCV 82.4 (80.0-98.0) fL MCH 28.0 (27.0-33.0) pg MCHC 34.0 (31.0-36.0) g/dl RDW 13.7 (11.0-16.0) % Plt Count 210 (160-400) X10*3/uL MPV 9.5 (9.4-12.4) fL Immature Gran % (Auto) 0.3 (0.0-0.4) % Neut % (Auto) 57.2 (45-73) % Lymph % (Auto) 25.7 (20-40) % [place] % (Auto) 10.7 (2-11) % Eos % (Auto) 5.5 H (0-4) % Baso % (Auto) 0.6 (0-2) % Lymph # (Auto) 1.9 (1.2-4.9) X10*3/uL [place] # (Auto) 0.8 (0.1-1.2) X10*3/uL Eos # (Auto) 0.4 (0.0-0.4) X10*3/uL Baso # (Auto) 0.0 (0.0-0.2) X10*3/uL Abs Immat Gran (auto) 0.02 (0.00-0.03) X10*3/uL Absolute Neuts (auto) 4.1 (2.0-8.3) x10*3/uL Absolute Nucleated RBC 0.000 (0.0-0.012) X10*3/uL Nucleated RBC % (auto) 0.0 (0.0-0.2) /100WBC Sodium 136 (135-145) mmol/L Potassium 4.4 (3.3-5.1) mmol/L Chloride 100 (96-108) mmol/L Carbon Dioxide 25 (22-29) mmol/L Anion Gap 15 (12-20) BUN 21 H (9-16) mg/dL Creatinine 1.30 (0.5-1.4) mg/dL Estim Creat Clear Calc 51.0 Estimated GFR 57 Random Glucose 127 H (60-115) mg/dL Calcium 9.2 D (8.4-10.2) mg/dL Total Bilirubin 0.4 0.4 (0.0-1.0) mg/dL Direct Bilirubin 0.2 (0.0-0.5) mg/dL AST 24 24 (5-37) U/L ALT 25 25 (0-40) U/L Alkaline Phosphatase 58 57 (39-117) U/L Total Protein 6.9 7.0 (6.5-8.0) g/dL Albumin 4.6 4.6 (3.5-5.0) g/dL Discharge Plan Discharge Clinical Impression: Abdominal pain Patient Disposition: Home, Self-Care Instructions: Abdominal Pain (ED) Additional Instructions: You were evaluated for abdominal pain. Your lab values were unremarkable. If pain persists please return for evaluation. Thank you for choosing this emergency department for evaluation. Please follow-up with primary care physician as needed. Return to the emergency department for any new, concerning, or worsening symptoms. Prescriptions: No Action meclizine 25 mg tablet 25 mg PO TID PRN (Reason: dizziness) Qty: 14 0RF
[2021-11-15 00:01] VITALS: BP 153/76; PULSE 78; RESP 16; O2SAT 99
--- NOTE | 2021-11-15 00:04 | PC.NURSE ---
initial contact with pt, pt is well appearing, pt was sitting in chair in room, encouraged to sit in stretcher, pt able to Gaurav with no limitations, pt is here due to interm abd pain, denies fevers, denies nausea, denies vomitin, reports loose stools but inconsistently, denies hx of intraabd pathology, denies abd surgical hx. Endorses no abd pain at this time but endorses dizziness. Vitals rechecked, VSS, pt denies any drug allergies, does not smoke, drinks occasionally. Feels safe at home denies SI/HI will await provider evaluation
[2021-11-15 01:44] VITALS: BP 161/85; PULSE 74; RESP 16; O2SAT 99
--- NOTE | 2021-11-15 01:51 | PC.NURSE ---
urine collected and sent to the lab prior to pt departure. Patient aware that [facility] will contact pt if urine results are abnormal
[2021-11-15 02:11] LABS: Appearance Urine CLEAR; Color Urine YELLOW; Glucose Urine UA NEG (NEG); Leukocyte Esterase Urine NEG (NEG); Nitrite Urine NEG (NEG); PH 5.5 (5.0-8.0); Specific Gravity - Urine <= 1.005 (1.005-1.025); Urine Blood NEG (NEG); Urine Ketones NEG (NEG); Urine Protein NEG (NEG-TRACE)
== END 2021-11-15 01:54 | disposition home or self-care (01) ==
PROVIDERS: Emergency Provider Emergency Medicine Emergency Medical Services; PCP Internal Medicine
DX: R10.32 Left lower quadrant pain (principal); R10.31 Right lower quadrant pain; Z79.899 Other long term (current) drug therapy
CPT/HCPCS: 36415; 80053; 80076; 81003; 82248; 85025; 99283; 99284

== ENCOUNTER 2021-12-25 12:22 | Outpatient (REF) | payer OTHER, SELFPAY ==
[2021-12-25 13:39] LABS: Estimated Average Glucose 120 mg/dL; Hemoglobin A1c % 5.8 %
[2021-12-25 13:43] LABS: Creatinine Urine 170.56 mg/dL
[2021-12-25 13:52] LABS: Alanine Aminotransferase 31 U/L (0-40); Albumin Level 4.6 g/dL (3.5-5.0); Alkaline Phosphatase 63 U/L (39-117); Anion Gap 15 (12-20); Aspartate Amino Transferase 23 U/L (5-37); Bilirubin Total 0.3 mg/dL (0.0-1.0); Blood Urea Nitrogen 19 mg/dL (9-16); Calcium 10.2 mg/dL (8.4-10.2); Carbon Dioxide 26 mmol/L (22-29); Chloride 104 mmol/L (96-108); Cholesterol 154 mg/dL; Estimated Glomerular Filt Rate > 60; Glucose Random 102 mg/dL (60-115); HDL Cholesterol 36 mg/dL; LDL Cholesterol Calculated 80 mg/dl; Potassium 4.7 mmol/L (3.3-5.1); Sodium 140 mmol/L (135-145); Total Protein 7.1 g/dL (6.5-8.0); Triglycerides 190 mg/dL
[2021-12-25 14:13] LABS: Vitamin B12 785 pg/mL (200-900)
== END 2021-12-25 12:23 | disposition home or self-care (01) ==
LOC: HO.LAB 12:22
PROVIDERS: PCP Internal Medicine; Visit Provider Internal Medicine
DX: E11.9 Type 2 diabetes mellitus without complications (principal); I10 Essential (primary) hypertension; R51.9 Headache, unspecified; R80.8 Other proteinuria
CPT/HCPCS: 36415; 80053; 80061; 82043; 82607; 83036

== ENCOUNTER 2022-03-05 09:04 | Outpatient (REF) | payer OTHER, SELFPAY ==
[2022-03-05 09:59] LABS: Hematocrit 41.7 % (42.0-52.0); Mean Corpuscular HGB Conc 33.6 g/dl (31.0-36.0); Mean Corpuscular Hemoglobin 27.7 pg (27.0-33.0); Mean Corpuscular Volume 82.4 fL (80.0-98.0); Mean Platelet Volume 9.5 fL (9.4-12.4); Platelet Count 205 X10*3/uL (160-400); Red Blood Count 5.06 X10*6/uL (4.60-5.80); Red Cell Distribution Width 13.3 % (11.0-16.0); White Blood Count 5.6 X10*3/uL (4.8-10.8)
[2022-03-05 10:46] LABS: Creatinine Urine 120.69 mg/dL; Protein/Creatinine Ratio, Ur 0.09 (<0.2); Total Protein Urine Random 11 mg/dL (<12)
[2022-03-05 10:46] LABS: Anion Gap 14 (12-20); Blood Urea Nitrogen 19 mg/dL (9-16); Calcium 9.9 mg/dL (8.4-10.2); Carbon Dioxide 26 mmol/L (22-29); Chloride 102 mmol/L (96-108); Estimated Glomerular Filt Rate > 60; Potassium 5.1 mmol/L (3.3-5.1); Sodium 137 mmol/L (135-145)
== END 2022-03-05 09:05 | disposition home or self-care (01) ==
LOC: HO.LAB 09:04
PROVIDERS: Visit Provider Internal Medicine Hypertension Specialist
DX: N18.31 Chronic kidney disease, stage 3a (principal)
CPT/HCPCS: 36415; 80051; 82310; 82565; 84156; 84520; 85027

== ENCOUNTER 2022-03-28 15:27 | Outpatient (REF) | payer OTHER, SELFPAY ==
[2022-03-28 16:09] LABS: Estimated Average Glucose 114 mg/dL; Hemoglobin A1c % 5.6 %
[2022-03-28 17:05] LABS: Alanine Aminotransferase 23 U/L (0-40); Albumin Level 4.4 g/dL (3.5-5.0); Alkaline Phosphatase 77 U/L (39-117); Anion Gap 12 (12-20); Aspartate Amino Transferase 17 U/L (5-37); Bilirubin Total 0.4 mg/dL (0.0-1.0); Blood Urea Nitrogen 22 mg/dL (9-16); Calcium 9.5 mg/dL (8.4-10.2); Carbon Dioxide 25 mmol/L (22-29); Chloride 104 mmol/L (96-108); Estimated Glomerular Filt Rate > 60; Glucose Random 189 mg/dL (60-115); Potassium 4.8 mmol/L (3.3-5.1); Prostate Specific Antigen 0.96 ng/mL (<0.05-4.0); Sodium 136 mmol/L (135-145); Total Protein 6.7 g/dL (6.5-8.0)
== END 2022-03-28 15:28 | disposition home or self-care (01) ==
LOC: HO.LAB 15:27
PROVIDERS: PCP Internal Medicine; Visit Provider Internal Medicine
DX: Z00.00 Encounter for general adult medical examination without abnormal findings (principal); Z12.5 Encounter for screening for malignant neoplasm of prostate; R80.1 Persistent proteinuria, unspecified; N40.0 Benign prostatic hyperplasia without lower urinary tract symptoms; E78.00 Pure hypercholesterolemia, unspecified; E11.3299 Type 2 diabetes mellitus with mild nonproliferative diabetic retinopathy without macular edema, unspecified eye
CPT/HCPCS: 36415; 80053; 83036; 84153

== ENCOUNTER 2022-07-03 11:03 | Outpatient (REF) | payer OTHER, SELFPAY ==
[2022-07-03 12:49] LABS: Estimated Average Glucose 128 mg/dL; Hemoglobin A1c % 6.1 %
[2022-07-03 13:16] LABS: Alanine Aminotransferase 28 U/L (0-40); Albumin Level 4.3 g/dL (3.5-5.0); Alkaline Phosphatase 59 U/L (39-117); Anion Gap 12 (12-20); Aspartate Amino Transferase 21 U/L (5-37); Bilirubin Total 0.4 mg/dL (0.0-1.0); Blood Urea Nitrogen 18 mg/dL (9-16); Calcium 9.4 mg/dL (8.4-10.2); Carbon Dioxide 27 mmol/L (22-29); Chloride 103 mmol/L (96-108); Estimated Glomerular Filt Rate > 60; Glucose Random 157 mg/dL (60-115); Potassium 5.2 mmol/L (3.3-5.1); Sodium 137 mmol/L (135-145); Total Protein 6.5 g/dL (6.5-8.0)
== END 2022-07-03 11:04 | disposition home or self-care (01) ==
LOC: HO.LAB 11:03
PROVIDERS: PCP Internal Medicine; Visit Provider Internal Medicine
DX: E78.00 Pure hypercholesterolemia, unspecified (principal); I10 Essential (primary) hypertension; R80.1 Persistent proteinuria, unspecified; E11.9 Type 2 diabetes mellitus without complications
CPT/HCPCS: 36415; 80053; 83036

== ENCOUNTER 2022-10-16 07:45 | Outpatient (REF) | payer OTHER, SELFPAY | END 2022-10-16 07:46 | disposition home or self-care (01) | LOC: HO.LAB 07:45 | PROVIDERS: PCP Internal Medicine; Visit Provider Internal Medicine | DX: E11.9 Type 2 diabetes mellitus without complications (principal); I10 Essential (primary) hypertension; R80.1 Persistent proteinuria, unspecified | CPT/HCPCS: 36415; 80053; 83036 ==

== ENCOUNTER 2023-02-18 10:34 | Outpatient (REF) | payer OTHER, SELFPAY ==
[2023-02-18 11:35] LABS: Estimated Average Glucose 111 mg/dL; Hemoglobin A1c % 5.5 % (<6.0)
[2023-02-18 12:05] LABS: Alanine Aminotransferase 27 U/L (0-40); Albumin Level 4.6 g/dL (3.5-5.0); Alkaline Phosphatase 62 U/L (39-117); Anion Gap 15 (12-20); Aspartate Amino Transferase 23 U/L (5-37); Bilirubin Total 0.4 mg/dL (0.0-1.0); Blood Urea Nitrogen 18 mg/dL (9-16); Calcium 10.1 mg/dL (8.4-10.2); Carbon Dioxide 26 mmol/L (22-29); Chloride 99 mmol/L (96-108); Cholesterol 130 mg/dL (<200); Estimated Glomerular Filt Rate > 60; Glucose Random 157 mg/dL (60-115); HDL Cholesterol 33 mg/dL (>40); LDL Cholesterol Calculated 70 mg/dL (<100); Potassium 4.9 mmol/L (3.3-5.1); Sodium 135 mmol/L (135-145); Total Protein 7.5 g/dL (6.5-8.0); Triglycerides 135 mg/dL (<150)
[2023-02-18 12:30] LABS: Thyroid Stimulating Hormone 1.06 uIU/mL (0.32-4.0)
[2023-02-18 12:39] LABS: Creatinine Urine 237.49 mg/dL; Microalbum/Creatinine Ratio Ur 35.7 ug/mg cr (<30)
[2023-02-18 12:41] LABS: Prostate Specific Antigen Scr 0.79 ng/mL (<0.05-4.0)
== END 2023-02-18 10:35 | disposition home or self-care (01) ==
LOC: HO.LAB 10:34
PROVIDERS: PCP Internal Medicine; Visit Provider Internal Medicine
DX: Z12.5 Encounter for screening for malignant neoplasm of prostate (principal); E11.9 Type 2 diabetes mellitus without complications; I10 Essential (primary) hypertension; N40.0 Benign prostatic hyperplasia without lower urinary tract symptoms; R63.4 Abnormal weight loss; R80.1 Persistent proteinuria, unspecified
CPT/HCPCS: 36415; 80053; 80061; 82043; 82570; 83036; 84153; 84443

== ENCOUNTER 2023-03-03 13:15 | Outpatient (REF) | payer OTHER, SELFPAY ==
[2023-03-03 14:48] LABS: Anion Gap 11 (12-20); Blood Urea Nitrogen 15 mg/dL (9-16); Carbon Dioxide 28 mmol/L (22-29); Chloride 97 mmol/L (96-108); Estimated Glomerular Filt Rate > 60; Glucose Random 72 mg/dL (60-115); Potassium 4.8 mmol/L (3.3-5.1); Sodium 131 mmol/L (135-145)
[2023-03-03 15:12] LABS: Creatinine Urine 119.43 mg/dL; Protein/Creatinine Ratio, Ur 0.13 (<0.2); Total Protein Urine Random 15 mg/dL (<12)
== END 2023-03-03 13:16 | disposition home or self-care (01) ==
LOC: HO.LAB 13:15
PROVIDERS: Visit Provider Internal Medicine Hypertension Specialist
DX: I10 Essential (primary) hypertension (principal)
CPT/HCPCS: 36415; 80048; 82570; 84156

== ENCOUNTER 2023-05-30 12:08 | Outpatient (REF) | payer OTHER, SELFPAY ==
[2023-05-30 13:10] LABS: Estimated Average Glucose 108 mg/dL; Hemoglobin A1c % 5.4 % (<6.0)
[2023-05-30 13:56] LABS: Alanine Aminotransferase 28 U/L (0-40); Albumin Level 4.4 g/dL (3.5-5.0); Alkaline Phosphatase 55 U/L (39-117); Anion Gap 11 (12-20); Aspartate Amino Transferase 22 U/L (5-37); Bilirubin Total 0.5 mg/dL (0.0-1.0); Blood Urea Nitrogen 18 mg/dL (9-16); Calcium 9.6 mg/dL (8.4-10.2); Carbon Dioxide 28 mmol/L (22-29); Chloride 98 mmol/L (96-108); Estimated Glomerular Filt Rate > 60; Glucose Random 97 mg/dL (60-115); Potassium 4.3 mmol/L (3.3-5.1); Sodium 133 mmol/L (135-145); Total Protein 7.3 g/dL (6.5-8.0)
== END 2023-05-30 12:09 | disposition home or self-care (01) ==
LOC: HO.LAB 12:08
PROVIDERS: PCP Internal Medicine; Visit Provider Internal Medicine
DX: E11.9 Type 2 diabetes mellitus without complications (principal); E78.00 Pure hypercholesterolemia, unspecified; I10 Essential (primary) hypertension; R80.1 Persistent proteinuria, unspecified
CPT/HCPCS: 36415; 80053; 83036

== ENCOUNTER 2023-07-29 12:38 | Outpatient (REF) | payer OTHER, SELFPAY ==
--- NOTE | ~2023-07-29 | XR_ITS ---
EXAMINATION: XR HIP, LEFT CLINICAL INFORMATION: Left hip pain. COMPARISON: Right hip images of August 27, 2014. CT abdomen and pelvis of June 17, 2018. TECHNIQUE: Two views of the left hip. FINDINGS: Moderate joint space narrowing with hypertrophic change in the left hip. Left hip alignment preserved. Incidental note on limited imaging of the pubic symphysis of bony bridging across the superior aspect of the pubic symphysis. XR/XR hip LT min 2V IMPRESSION: Moderate degenerative changes in the left hip.
== END 2023-07-29 12:39 | disposition home or self-care (01) ==
LOC: HO.XRAY 12:38
PROVIDERS: PCP Internal Medicine; Visit Provider Internal Medicine
DX: M25.552 Pain in left hip (principal)
CPT/HCPCS: 73502

== ENCOUNTER 2023-09-29 10:15 | Outpatient (REF) | payer OTHER, SELFPAY ==
[2023-09-29 11:41] LABS: Estimated Average Glucose 117 mg/dL; Hemoglobin A1c % 5.7 % (<6.0)
[2023-09-29 12:21] LABS: Alanine Aminotransferase 18 U/L (0-40); Albumin Level 4.2 g/dL (3.5-5.0); Alkaline Phosphatase 58 U/L (39-117); Anion Gap 11 (12-20); Aspartate Amino Transferase 17 U/L (5-37); Bilirubin Total 0.3 mg/dL (0.0-1.0); Blood Urea Nitrogen 21 mg/dL (9-16); Carbon Dioxide 28 mmol/L (22-29); Chloride 105 mmol/L (96-108); Estimated Glomerular Filt Rate > 60; Glucose Random 87 mg/dL (60-115); Potassium 4.7 mmol/L (3.3-5.1); Sodium 139 mmol/L (135-145); Total Protein 6.9 g/dL (6.5-8.0)
== END 2023-09-29 10:16 | disposition home or self-care (01) ==
LOC: HO.LAB 10:15
PROVIDERS: PCP Internal Medicine; Visit Provider Internal Medicine
DX: E11.9 Type 2 diabetes mellitus without complications (principal); I10 Essential (primary) hypertension; J45.909 Unspecified asthma, uncomplicated; R21 Rash and other nonspecific skin eruption; R80.1 Persistent proteinuria, unspecified
CPT/HCPCS: 36415; 80053; 83036

== ENCOUNTER 2023-12-30 08:31 | Outpatient (REF) | payer OTHER, SELFPAY ==
[2023-12-30 09:12] LABS: Estimated Average Glucose 114 mg/dL; Hemoglobin A1c % 5.6 % (<6.0)
[2023-12-30 09:36] LABS: Alanine Aminotransferase 28 U/L (0-40); Albumin Level 4.3 g/dL (3.5-5.0); Alkaline Phosphatase 51 U/L (39-117); Anion Gap 12 (12-20); Aspartate Amino Transferase 25 U/L (5-37); Bilirubin Total 0.4 mg/dL (0.0-1.0); Blood Urea Nitrogen 19 mg/dL (9-16); Calcium 9.7 mg/dL (8.4-10.2); Carbon Dioxide 28 mmol/L (22-29); Chloride 104 mmol/L (96-108); Estimated Glomerular Filt Rate > 60; Glucose Random 89 mg/dL (60-115); Potassium 4.6 mmol/L (3.3-5.1); Sodium 139 mmol/L (135-145); Total Protein 6.8 g/dL (6.5-8.0)
== END 2023-12-30 08:32 | disposition home or self-care (01) ==
LOC: HO.LAB 08:31
PROVIDERS: PCP Internal Medicine; Visit Provider Internal Medicine
DX: E11.9 Type 2 diabetes mellitus without complications (principal); I10 Essential (primary) hypertension; M16.32 Unilateral osteoarthritis resulting from hip dysplasia, left hip
CPT/HCPCS: 36415; 80053; 83036

== ENCOUNTER 2024-03-09 10:45 | Outpatient (REF) | payer OTHER, SELFPAY ==
[2024-03-09 11:44] LABS: Appearance Urine Clear; Color Urine Dark Yellow; Glucose Urine UA Negative (Negative); Leukocyte Esterase Urine Trace (Negative); Nitrite Urine Negative (Negative); PH 5.5 (5.0-9.0); Specific Gravity - Urine 1.025 (1.005-1.025); UMIC TRIGGER UACC YES; Urine Blood Negative (Negative); Urine Ketones Trace mg/dL (Negative); Urine Protein 30 (1+) mg/dL (Neg-Trace)
[2024-03-09 11:59] LABS: Bacteria Urine None Seen (None Seen); RBC Urine 0-2 /HPF (0-2); Squamous Epithelial Cell Urine 0-2 /HPF (0-2); WBC Urine 0-5 /HPF (0-5)
[2024-03-09 12:35] LABS: Anion Gap 13 (12-20); Blood Urea Nitrogen 29 mg/dL (9-16); Calcium 9.7 mg/dL (8.4-10.2); Carbon Dioxide 25 mmol/L (22-29); Chloride 100 mmol/L (96-108); Estimated Glomerular Filt Rate 48; Potassium 4.5 mmol/L (3.3-5.1); Sodium 133 mmol/L (135-145)
== END 2024-03-09 10:46 | disposition home or self-care (01) ==
LOC: HO.LAB 10:45
PROVIDERS: PCP Internal Medicine; Visit Provider Internal Medicine Nephrology
DX: I10 Essential (primary) hypertension (principal); R80.9 Proteinuria, unspecified
CPT/HCPCS: 36415; 80051; 81001; 82310; 82565; 84520

== ENCOUNTER 2024-03-30 10:48 | Outpatient (REF) | payer OTHER, SELFPAY ==
[2024-03-30 11:02] LABS: MANUAL DIFF FLAG NO
[2024-03-30 12:02] LABS: Basophils Percent Auto 0.3 % (0-2); Eosinophils Absolute Auto 0.1 X10*3/uL (0.0-0.4); Eosinophils Percent Auto 1.5 % (0-4); Hemoglobin 13.3 g/dl (14.0-18.0); Imm Gran Abs Auto 0.03 X10*3/uL (0.00-0.03); Imm Gran Pct Auto 0.3 % (0.0-0.4); Lymphocytes Absolute Auto 0.9 X10*3/uL (1.2-4.9); Lymphocytes Percent Auto 9.8 % (20-40); Mean Corpuscular HGB Conc 33.3 g/dl (31.0-36.0); Mean Corpuscular Hemoglobin 28.1 pg (27.0-33.0); Mean Corpuscular Volume 84.6 fL (80.0-98.0); Mean Platelet Volume 9.2 fL (9.4-12.4); Monocytes Absolute Auto 0.7 X10*3/uL (0.1-1.2); Monocytes Percent Auto 8.2 % (2-11); Neutrophils Absolute Auto 7.1 x10*3/uL (2.0-8.3); Neutrophils Percent Auto 79.9 % (45-73); Platelet Count 221 X10*3/uL (160-400); Red Blood Count 4.73 X10*6/uL (4.60-5.80); Red Cell Distribution Width 13.6 % (11.0-16.0); White Blood Count 8.9 X10*3/uL (4.8-10.8)
[2024-03-30 12:14] LABS: Estimated Average Glucose 105 mg/dL; Hemoglobin A1C 117.9506 umol/L; Hemoglobin A1c % 5.3 % (<6.0); Total Hemoglobin (HGBA1C) 3395.2363 umol/L
[2024-03-30 12:46] LABS: Albumin Level 4.4 g/dL (3.5-5.0); Alkaline Phosphatase 55 U/L (39-117); Anion Gap 11 (12-20); Aspartate Amino Transferase 22 U/L (5-37); Bilirubin Total 0.3 mg/dL (0.0-1.0); Blood Urea Nitrogen 28 mg/dL (9-16); Calcium 9.8 mg/dL (8.4-10.2); Carbon Dioxide 29 mmol/L (22-29); Chloride 103 mmol/L (96-108); Cholesterol 129 mg/dL (<200); Estimated Glomerular Filt Rate > 60; Glucose Random 60 mg/dL (60-115); HDL Cholesterol 39 mg/dL (>40); LDL Cholesterol Calculated 71 mg/dL (<100); Sodium 138 mmol/L (135-145); Total Protein 7.3 g/dL (6.5-8.0); Triglycerides 99 mg/dL (<150)
[2024-03-30 12:49] LABS: Creatinine Urine 238.33 mg/dL; Microalbum/Creatinine Ratio Ur 54.5 ug/mg cr (<30)
[2024-03-30 12:49] LABS: Prostate Specific Antigen Scr 1.19 ng/mL (<0.05-4.0)
[2024-03-30 12:59] LABS: Thyroid Stimulating Hormone 1.55 uIU/mL (0.32-4.0)
[2024-03-30 13:04] LABS: Alanine Aminotransferase 33 U/L (0-40)
== END 2024-03-30 10:49 | disposition home or self-care (01) ==
LOC: HO.LAB 10:48
PROVIDERS: PCP Internal Medicine; Visit Provider Internal Medicine
DX: E11.9 Type 2 diabetes mellitus without complications (principal); E78.00 Pure hypercholesterolemia, unspecified; I10 Essential (primary) hypertension; M54.50 Low back pain, unspecified; Z12.5 Encounter for screening for malignant neoplasm of prostate
CPT/HCPCS: 36415; 80053; 80061; 82043; 82570; 83036; 84153; 84443; 85025

== ENCOUNTER 2024-07-26 16:53 | Outpatient (REF) | payer OTHER, SELFPAY ==
[2024-07-26 17:21] LABS: Estimated Average Glucose 117 mg/dL; Hemoglobin A1C 141.5206 umol/L; Hemoglobin A1c % 5.7 % (<6.0); Total Hemoglobin (HGBA1C) 3649.2504 umol/L
[2024-07-26 17:50] LABS: Alanine Aminotransferase 38 U/L (0-40); Albumin Level 4.6 g/dL (3.5-5.0); Alkaline Phosphatase 63 U/L (39-117); Anion Gap 12 (12-20); Aspartate Amino Transferase 35 U/L (5-37); Bilirubin Total 0.5 mg/dL (0.0-1.0); Blood Urea Nitrogen 24 mg/dL (9-16); Calcium 10.5 mg/dL (8.4-10.2); Carbon Dioxide 25 mmol/L (22-29); Chloride 108 mmol/L (96-108); Estimated Glomerular Filt Rate > 60; Glucose Random 78 mg/dL (60-115); Potassium 4.9 mmol/L (3.3-5.1); Sodium 140 mmol/L (135-145); Total Protein 7.4 g/dL (6.5-8.0)
--- OUTSIDE RECORDS SUMMARY | 2024-07-26 18:33 | XMS_ITS | Clinical Summary ---
Author Organization [facility] Address [address] [place] [address] Care Team Providers Care Edger Feeder Name Role Phone Unavailable Primary Care Provider Unavailabl e Allergies Active Allergy Reactions Criticality Noted Date Comments Lisinopril-Hydrochlorothiazide Unknown 01/09 Medications irbesartan (Avapro) 300 MG tablet Take 300 mg by mouth in the morning. 3 Active loratadine (Claritin) 10 MG tablet Take 10 mg by mouth in the morning. 3 Active metFORMIN XR (Glucophage-XR) 750 MG 24 hr tablet Take 750 mg by mouth 2 times daily. 3 Active metoprolol succinate XL (Toprol-XL) 50 MG 24 hr tablet Take 50 mg by mouth in the morning. 3 Active rosuvastatin (Crestor) 10 MG tablet Take 10 mg by mouth in the morning. 3 Active Januvia 100 MG tablet Take 100 mg by mouth in the morning. 3 Active dicyclomine (Bentyl) 20 MG tablet TAKE 1 TABLET BY MOUTH THREE TIMES DAILY NEEDED FOR ABDOMINAL PAIN 3 Active Ventolin HFA 108 (90 Base) MCG/ACT inhaler INHALE 2 PUFF BY MOUTH FOUR TIMES DAILY NEEDED FOR ASTHMA 3 Active Social History Tobacco Use Types Packs/Day Years Used Date Smoking Tobacco: Never Smokeless Tobacco: Never Tobacco Cessation:Counseling Given: Not Answered Sex and Gender Information Value Date Recorded Sex Assigned at Male 01/06/2023 4:37 PM EDT Legal Sex Male 4:34 PM EDT Gender Identity Male 01/06/2023 4:37 PM EDT Sexual Orientation Don't know 01/06/2023 4: 37 PM EDT Last Filed Vital Signs Vital Sign Reading Time Taken Comments Blood Pressure 146/79 02/10/2023 2:05 PM EDT Pulse 79 02/10/2023 2:05 PM EDT Temperature - - Respiratory Rate - - Oxygen Saturation - - Inhaled Oxygen Concentration - - Weight - - Height - - Body Mass Index - - Plan of Treatment Health Maintenance Due Date Last Done Comments CT Colonography 1965 Colonoscopy 1965 Colorectal Cancer Screening 1965 Dental Oral Exam 1965 Dental Prophylaxis 1965 Depression Screening 1965 FIT DNA/Cologuard 1965 FIT 1965 FOBT 1965 HIV Screening 1965 Lipid Panel 1965 SDOH Screening 1965 Sigmoidoscopy 1965 Alcohol/Substance Use Screening 1977 Hepatitis C Screening 1983 Hepatitis B Vaccines (1 of 3 - 19+ 3-dose series) 1984 COVID-19 Vaccine ( season) 2023 01/10/2022, 08/13/2021, 02/09/2021, Additional history exists Influenza Vaccine (#1) 2023 , 01/02/2021, 12/16/2019, Additional history exists Dental X-Ray: Bitewings 01/30/2024 01/28/2023 Tobacco Screening 02/11/2024 02/10/2023 Dental X-Ray: Full Mouth 01/29/2026 01/28/2023 DTaP/Tdap/Td Vaccines (2 - Td or Tdap) 01/09/2031 01/09/2021 RSV Patients and Patients Aged 60 years or older (1 - 1-dose 75+ series) 2040 Zoster Vaccines Completed 03/27/2021, 02/13, 01/09/2021 Pneumococcal Vaccine: 50+ Years Completed 04/03/2022 Pneumococcal Vaccine: Pediatrics (0 to 5 Years) and At-Risk Patients (6 to 49) Years) Aged Out 04/03/2022 No longer eligible based on patient's age to complete this topic HIB Vaccines Aged Out No longer eligi ble based on patient's age to complete this topic HPV Vaccines Aged Out No longer eligi ble based on patient's age to complete this topic Hepatitis A Vaccines Aged Out No long er eligible based on patient's age to complete this topic IPV Vaccines Aged Out No longer eligi ble based on patient's age to complete this topic Meningococcal Vaccine Aged Out No [place] eligible based on patient's age to complete this topic RSV under 20 months Aged Out No longe r eligible based on patient's age to complete this topic Rotavirus Vaccines Aged Out No longer eligible based on patient's age to complete this topic Procedures Procedure Name Priority Date/Time Associated Diagnosis Comments INTRAORAL - COMPLETE SERIES OF RADIOGRAPHIC IMAGES Routine 01/28/2023 2:00 PM EDT from Last 3 Months or Most Recently Relevant to Health Maintenance Insurance [facility]
--- OUTSIDE RECORDS SUMMARY | 2024-07-26 18:33 | XMS_ITS | Clinical Summary ---
Author Organization [facility] Address [address] [place] [address] Phone Care Team Providers Care Actuarial Director Name Role Phone Anu Robbins MD Primary Care Provider Allergies Active Allergy Reactions Criticality Noted Date Comments Lisinopril-Hydrochlorothiazide Other (see comments) 01/09/2018 Medications irbesartan (AVAPRO) 300 MG tablet Take 1 tablet by mouth 1 (one) time each day 01/09/2018 Active metFORMIN (GLUCOPHAGE) 1000 MG tablet Take 1 tablet by mouth 1 (one) time each day Active metoprolol succinate XL (TOPROL-XL) 50 MG 24 hr tablet Take 1 tablet by mouth 1 (one) time each day Active SITagliptin (JANUVIA) 100 MG tablet Take 1 tablet by mouth 1 (one) time each day Active rosuvastatin (CRESTOR) 10 MG tablet Take 10 mg by mouth 1 (one) time each day Active Multiple Vitamins-Minera ls (OCUVITE ADULT 50+ PO) Take 1 capsule by mouth 1 (one) time each day Active Ventolin HFA 108 (90 Base) MCG/ACT inhaler INHALE 2 PUFF BY MOUTH FOUR TIMES DAILY NEEDED FOR ASTHMA 02/28/2021 Active loratadine (CLARITIN) 10 MG tablet Take 10 mg by mouth 1 (one) time each day 06/23/2021 Active Arnuity Ellipta 100 MCG/ACT aerosol powder INHALE 1 PUFF BY MOUTH EVERY 24 HOURS 02/25/2024 Active Active Problems Problem Noted Date Diagnosed Date Type 2 diabetes mellitus wit h diabetic chronic kidney disease 03/14/2023 Hypertensive disorder 06/15/2020 Hyposmolality and/or hyponatremia 06/15/2020 Microalbuminuria 06/15/2020 Microscopic hematuria 06/15/2020 Encounters Date Type Department Care Team Description 06/13/2024 Orders Only [facility] [address] [place] [phone] Bayron Chappell MD Stage 3a chronic kidney disease (HCC); Type 2 diabetes mellitus with diabetic chronic kidney disease (HCC) from Last 3 Months Family History Medical History Relation Comments Diabetes Father Hypertension Father Diabetes Mother Hypertension Mother Relation Status Comments Father Unknown Mother Unknown Social History Tobacco Use Types Packs/Day Years Used Date Smoking Tobacco: Never Smokeless Tobacco: Never Tobacco Cessation:Counseling Given: Not Answered Alcohol Use Standard Drinks/Week Comments Yes 0 (1 standard drink = 0.6 oz pure alcohol) Alcoholic Drinks/day: Occasional social drink Sex and Gender Information Value Date Recorded Sex Assigned at Not on file Legal Sex Male 4:52 PM EST Gender Identity Not on file Sexual Orientation Not on file Last Filed Vital Signs Vital Sign Reading Time Taken Comments Blood Pressure 120/80 03/15/2024 1:26 PM EST Pulse 90 03/15/2024 1:26 PM EST Temperature - - Respiratory Rate - - Oxygen Saturation 99% 03/15/2024 1:26 PM EST Inhaled Oxygen Concentration - - Weight 56.9 kg (125 lb 6.4 oz) 03/15/2024 1:26 P M EST Height 160 cm (5' 3 ) 01/10/2020 12:00 PM EDT Body Mass Index 22.21 01/10/2020 12:00 PM EDT Plan of Treatment Upcoming Encounters Date Type Department Care Team (Late st Contact Info) Description 08/12/2024 1:45 PM EDT Office Visit [facility] [address] [place] [phone] Bayron Chappell MD [address] [facility] [address] [place] [address] Health Maintenance Due Date Last Done Comments Hepatitis B Vaccine (1 of 3 - 19+ 3-dose series) 1984 Pneumococcal Vaccine: 50+ Ye ars (1 of 2 - PCV) 1984 Colorectal Cancer Screening: Annual FOBT 2014 Colorectal Cancer Screening: Colonoscopy 2014 Colorectal Cancer Screening: Sigmoidoscopy 2014 Diabetes: Hemoglobin A1C 03/14/2023 12/07/2019, 06/12 Diabetes: Ophthalmology Exam 03/14/2023 Diabetes: Pedal Pulse Checked 03/14/2023 Diabetes: Sensory Foot Exam 03/14/2023 Diabetes: Visual Foot Exam 03/14/2023 Influenza Vaccine (Season Ended) 2024 Procedures Procedure Name Priority Date/Time Associated Diagnosis Comments HEMOGLOBIN A1C Routine 12/07/2019 12:59 PM EDT from Last 3 Months or Most Recently Relevant to Health Maintenance Results * Hemoglobin A1c (12/07/2019 12:59 PM EDT) Estimated Average Glucose 157 MG/DL AMY Comment: eAG = Estimated average glucose which is %A1C expressed as average glucose, using the formula of the A2G-Hwyocft Average Glucose study (ADAG), Diabetes Care, Vol.31,#8, Nov. 2007 Hemoglobin A1C 7.1 % AMY Comment: ?Hemoglobin A1C Reference Range ? Adults: ??4.8 - 6.0 % ? Non diabetic: ??< 6.0 % ? Goal: ??< 7.0 % Additional Action Suggested: ??> 8.0 % Note: ??Hemoglobin A1c results are invalid for patients ? with abnormal amounts of HbF. ??Blood transfusions ? may impact the HbA1c concentration in the patient ? sample. 12/07/2019 12:5 9 PM EDT us Anu Robbins MD LAB BLOOD ORDERABLES Final Result [place] from Last 3 Months or Most Recently Relevant to Health Maintenance Insurance [facility] MCR ([id number]) [facility] MCR ([id number]) Care Teams Actuarial Director Relationship Specialty Start Date End Date Anu Robbins MD [address] [place] [address] PCP - General 04/24/20
== END 2024-07-26 16:54 | disposition home or self-care (01) ==
LOC: HO.LAB 16:53
PROVIDERS: PCP Internal Medicine; Visit Provider Internal Medicine
DX: E11.9 Type 2 diabetes mellitus without complications (principal); E78.00 Pure hypercholesterolemia, unspecified; I10 Essential (primary) hypertension; R21 Rash and other nonspecific skin eruption; R80.8 Other proteinuria
CPT/HCPCS: 36415; 80053; 83036

== ENCOUNTER 2024-08-04 15:00 | Outpatient (REF) | payer OTHER, SELFPAY ==
[2024-08-04 15:23] LABS: MANUAL DIFF FLAG NO
[2024-08-04 15:43] LABS: Appearance Urine Clear; Color Urine Yellow; Glucose Urine UA >=1000 mg/dL (Negative); Leukocyte Esterase Urine Negative (Negative); Nitrite Urine Negative (Negative); PH 5.5 (5.0-9.0); Specific Gravity - Urine >= 1.030 (1.005-1.025); UMIC TRIGGER UA YES; Urine Blood Moderate (2+) (Negative); Urine Ketones Trace mg/dL (Negative); Urine Protein Negative (Neg-Trace)
[2024-08-04 15:45] LABS: Bacteria Urine None Seen (None Seen); Hyaline Casts Urine 0-2 /LPF (0-2); RBC Urine >20 /HPF (0-2); Squamous Epithelial Cell Urine 0-2 /HPF (0-2); WBC Urine 0-5 /HPF (0-5)
[2024-08-04 15:47] LABS: Basophils Percent Auto 0.4 % (0-2); Eosinophils Absolute Auto 0.3 X10*3/uL (0.0-0.4); Eosinophils Percent Auto 3.8 % (0-4); Hematocrit 42.2 % (42.0-52.0); Hemoglobin 13.7 g/dl (14.0-18.0); Imm Gran Abs Auto 0.02 X10*3/uL (0.00-0.03); Imm Gran Pct Auto 0.3 % (0.0-0.4); Lymphocytes Percent Auto 15.1 % (20-40); Mean Corpuscular HGB Conc 32.5 g/dl (31.0-36.0); Mean Corpuscular Hemoglobin 27.2 pg (27.0-33.0); Mean Corpuscular Volume 83.7 fL (80.0-98.0); Mean Platelet Volume 9.2 fL (9.4-12.4); Monocytes Absolute Auto 0.8 X10*3/uL (0.1-1.2); Monocytes Percent Auto 11.6 % (2-11); Neutrophils Absolute Auto 4.7 x10*3/uL (2.0-8.3); Neutrophils Percent Auto 68.8 % (45-73); Platelet Count 231 X10*3/uL (160-400); Red Blood Count 5.04 X10*6/uL (4.60-5.80); Red Cell Distribution Width 13.7 % (11.0-16.0); White Blood Count 6.9 X10*3/uL (4.8-10.8)
[2024-08-04 16:08] LABS: Albumin Level 4.6 g/dL (3.5-5.0); Anion Gap 15 (12-20); Blood Urea Nitrogen 29 mg/dL (9-16); Calcium 9.9 mg/dL (8.4-10.2); Carbon Dioxide 24 mmol/L (22-29); Chloride 105 mmol/L (96-108); Estimated Glomerular Filt Rate > 60; Magnesium 1.6 mg/dL (1.6-2.6); Phosphorus 3.9 mg/dL (2.7-4.5); Potassium 5.2 mmol/L (3.3-5.1); Sodium 139 mmol/L (135-145)
[2024-08-04 16:16] LABS: Creatinine Urine 135.95 mg/dL; Parathyroid Hormone Intact 86.1 pg/mL (8.7-77.1); Protein/Creatinine Ratio, Ur 0.08 (<0.2); Total Protein Urine Random 11 mg/dL (<12)
--- OUTSIDE RECORDS SUMMARY | 2024-08-04 17:48 | XMS_ITS | Clinical Summary ---
Author Organization [employer] Address [address] [facility] [address] [place] [address] Care Team Providers Care Cotton Sampler Name Role Phone Unavailable Primary Care Provider [...] Recently Relevant to Health Maintenance Insurance [facility]
--- OUTSIDE RECORDS SUMMARY | 2024-08-04 17:48 | XMS_ITS | Clinical Summary ---
Author Organization [facility] Address [address] [place] [phone] Phone Care Team Providers Care Tray Delivery Aide Name Role Phone Anu Robbins MD Primary [...] Only [facility] [address] [place] [phone] Bayron Chappell MD Stage 3a chronic kidney [...] Visit [facility] [address] [place] [phone] Bayron Chappell MD [address] [facility] [address] [place] [address] Health Maintenance Due Date Last [...] Procedure Name Priority Date/Time Associated Diagnosis Comments PROTEIN / CREATININE RATIO, URINE Routine 08/04/2024 3:37 PM EDT Stage 3a chronic kidney disease (HCC) Type 2 diabetes mellitus with diabetic chronic kidney disease (HCC) URINALYSIS WITH MICROSCOPIC Routine 08/04/2024 3:37 PM EDT Stage 3a chronic kidney disease (HCC) Type 2 diabetes mellitus with diabetic chronic kidney disease (HCC) PTH, INTACT (HC) Routine 08/04/2024 3:20 PM EDT CREATININE, BLOOD Routine 08/04/2024 3:2 0 PM EDT BUN Routine 08/04/2024 3:20 PM EDT ELECTROLYTE PANEL Routine 08/04/2024 3:2 0 PM EDT CBC AND DIFFERENTIAL Routine 08/04/2024 3:20 PM EDT CALCIUM Routine 08/04/2024 3:20 PM EDT Stage 3a chronic kidney disease (HCC) Type 2 diabetes mellitus with diabetic chronic kidney disease (HCC) ALBUMIN Routine 08/04/2024 3:20 PM EDT Stage 3a chronic kidney disease (HCC) Type 2 diabetes mellitus with diabetic chronic kidney disease (HCC) MAGNESIUM Routine 08/04/2024 3:20 PM EDT Stage 3a chronic kidney disease (HCC) Type 2 diabetes mellitus with diabetic chronic kidney disease (HCC) PHOSPHATE ( PHOSPHORUS) Routine 08/04/2024 3:20 PM EDT Stage 3a chronic kidney disease (HCC) Type 2 diabetes mellitus with diabetic chronic kidney disease (HCC) HEMOGLOBIN A1C Routine 12/07/2019 12:59 PM EDT from Last 3 Months or Most Recently Relevant to Health Maintenance Results * Protein, Total, Random Urine w/Creatinine (Protein/Creat Ratio) (08/04/2024 3:37 PM EDT) Creatinine, Urine 135.95 mg/dL See order comments Protein Urine Random 11 <12 mg/dL See order comments Protein/Creati nine Ratio, Urine 0.08 <0.2 See order comments Comment: The spot urine protein:creatinine ratio may increase to 0.3 during normal . Urine (Urine, Clean Catch) 08/04/2024 3:37 PM EDT 08/04/2024 3:37 PM EDT Bayron Chappell MD LAB URINE ORDERABLES Final Re sult Performing Organization Address [facility] de Phone Number [place] See order comments [place] [address] * (ABNORMAL) Urinalysis with microscopic (08/04/2024 3:37 PM EDT) Color Urine Yellow See orde r comments Appearance Urine Clear See order comments pH Urine 5.5 5.0 - 9.0 See order comments Glucose Urine >=1000(A) Negative mg/dL See order comments Blood, Urine Moderate (2+)(A) Negative See order comments Specific [place] Urine >=1.030(H) 1.005 - 1.025 See order comments Protein Urine Negative Neg-Trace mg/dL See order comments Ketones, Urine Trace Negative mg/dL See order comments Nitrite, Urine Negative Negative See o rder comments Leukocyte Esterase Urine Negative Negative See order comments Urine (Urine, Clean Catch) 08/04/2024 3:37 PM EDT 08/04/2024 3:37 PM EDT Bayron Chappell MD LAB URINE ORDERABLES Final Re sult Performing Organization Address [facility] Phone Number [facility] See order comments [place] [address] * Creatinine (08/04/2024 3:20 PM EDT) Creatinine Serum 1.22 0.5 - 1.4 mg/dL See order comments eGFR >60 See order comments Comment: Chronic Kidney Disease: ??Estimated GFR < 60 mL/min/1.73m2 Severe Kidney Disease: ??Estimated GFR < 15 mL/min/1.73m2 08/04/2024 3:20 PM EDT 08/04/2024 3:20 PM EDT Bayron Chappell MD LAB BLOOD ORDERABLES Final Re sult Performing Organization Address [facility] Phone Number [place] See order comments [place] [address] * (ABNORMAL) PTH, Intact (08/04/2024 3:20 PM EDT) Parathyroid Hormone, Intact 86.1(H) 8.7 - 77.1 pg/mL See order comments 08/04/2024 3:20 PM EDT 08/04/2024 3:20 PM EDT Bayron Chappell MD LAB [id number] SOLICITED RESULTS Final Result Performing Organization Address [facility] Phone Number [facility] See order comments [place] [address] * (ABNORMAL) CBC and Differential (08/04/2024 3:20 PM EDT) WBC 6.9 4.8 - 10.8 X10*3/uL See order comments RBC 5.04 4.60 - 5.80 X10*6/uL See order comments Hgb 13.7(L) 14.0 - 18.0 g/dl See order comments Hematocrit 42.2 42.0 - 52.0 % See order comments MCV 83.7 80.0 - 98.0 fL See order comments MCH 27.2 27.0 - 33.0 pg See order comments MCHC 32.5 31.0 - 36.0 g/dl See order comments RDW 13.7 11.0 - 16.0 % See order comments Platelets 231 160 - 400 X10*3/uL See order comments MPV 9.2(L) 9.4 - 12.4 fL See order comments Neutrophils % Auto 68.8 45 - 73 % See order comments Immature Granulocytes 0.3 0.0 - 0.4 % See order comments Lymphocytes Relative 15.1(L) 20 - 40 % See order comments Monocytes 11.6(H) 2 - 11 % See order comments Eosinophils Relative 3.8 0 - 4 % See order comments Basophils Relative 0.4 0 - 2 % See order comments nRBC Count 0.0 0.0 - 0.2 /100WBC See order comments Neutrophils Absolute 4.7 2.0 - 8.3 x10*3/uL See order comments Immature Grans (Absolute) 0.02 0.00 - 0.03 X10*3/uL See order comments Lymphocytes Absolute 1.0(L) 1.2 - 4.9 X10*3/uL See order comments Monocytes Absolute 0.8 0.1 - 1.2 X10*3/uL See order comments Eosinophils Absolute 0.3 0.0 - 0.4 X10*3/uL See order comments Basophils Absolute 0.0 0.0 - 0.2 X10*3/uL See order comments NRBC Absolute 0.000 0.0 - 0.012 X10*3/uL See order comments 08/04/2024 3:20 PM EDT 08/04/2024 3:20 PM EDT us Bayron Chappell MD LAB BLOOD ORDERABLES Final Re sult [place] See order comments [place] [address] * (ABNORMAL) BUN (08/04/2024 3:20 PM EDT) BUN 29(H) 9 - 16 mg/dL See order comments 08/04/2024 3:20 PM EDT 08/04/2024 3:20 PM EDT us Bayron Chappell MD LAB BLOOD ORDERABLES Final Re sult Performing Organization Address [facility] de Phone Number [place] See order comments [place] [address] * Phosphorus (08/04/2024 3:20 PM EDT) Phosphorus, Serum 3.9 2.7 - 4.5 mg/dL See order comments Blood (Blood, Venous) 08/04/2024 3:20 PM EDT 08/04/2024 3:20 PM EDT Bayron Chappell MD LAB BLOOD ORDERABLES Final Re sult Performing Organization Address [facility] de Phone Number [place] See order comments [place] [address] * Magnesium (08/04/2024 3:20 PM EDT) Magnesium 1.6 1.6 - 2.6 mg/dL See order comments Blood (Blood, Venous) 08/04/2024 3:20 PM EDT 08/04/2024 3:20 PM EDT Bayron Chappell MD LAB BLOOD ORDERABLES Final Re sult Performing Organization Address [facility] de Phone Number [facility] See order comments [place] [address] * Calcium (08/04/2024 3:20 PM EDT) Calcium 9.9 8.4 - 10.2 mg/dL See order comments Blood (Blood, Venous) 08/04/2024 3:20 PM EDT 08/04/2024 3:20 PM EDT Bayron Chappell MD LAB BLOOD ORDERABLES Final Re sult Performing Organization Address [facility] de Phone Number [facility] See order comments [place] [address] * Albumin (08/04/2024 3:20 PM EDT) Albumin 4.6 3.5 - 5.0 g/dL See order comments Blood (Blood, Venous) 08/04/2024 3:20 PM EDT 08/04/2024 3:20 PM EDT Bayron Chappell MD LAB BLOOD ORDERABLES Final Re sul Performing Organization Address [facility] de Phone Number [place] See order comments [place] [address] * (ABNORMAL) Electrolyte panel (08/04/2024 3:20 PM EDT) Pathologist [facility] [place] Sodium 139 135 - 145 mmol/L See order comments Potassium 5.2(H) 3.3 - 5.1 mmol/L See order comments Chloride 105 96 - 108 mmol/L See order comments Bicarbonate (CO2) 24 22 - 29 mmol/L See order comments Anion Gap 15 12 - 20 See order comments 08/04/2024 3:20 PM EDT 08/04/2024 3:20 PM EDT Bayron Chappell MD LAB BLOOD ORDERABLES Final Re [facility] Performing Organization Address [facility] de Phone Number [place] See order comments [place] [address] * Hemoglobin A1c (12/07/2019 12:59 PM EDT) Pathologist [facility] [place] Estimated Average Glucose 157 MG/DL AMY Comment: eAG = Estimated average glucose which is %A1C expressed as average glucose, using the formula of the T4V-Kcyygaj Average Glucose study (ADAG), Diabetes Care, Vol.31,#8, [...] ? sample. 12/07/2019 12:5 9 PM EDT Anu Robbins MD LAB BLOOD ORDERABLES Final Result [place] from Last 3 Months or Most Recently Relevant to Health Maintenance Insurance [facility] ([id number]) [facility] ([id number]) Care Teams Tray Delivery Aide Relationship Specialty Start Date End Date Anu Robbins MD [address] [place] [address] (work) PCP - General 04/24/20
[2024-08-08 13:18] LABS: VITAMIN D (1,25 OH) D3 19 pg/mL; Vit D (1,25-Dihydroxy) Total 19 pg/mL (18-72); Vitamin D (1,25 OH) D2 <8 pg/mL
== END 2024-08-04 15:01 | disposition home or self-care (01) ==
LOC: HO.LAB 15:00
PROVIDERS: PCP Internal Medicine; Visit Provider Internal Medicine Nephrology
DX: E11.22 Type 2 diabetes mellitus with diabetic chronic kidney disease (principal); N18.31 Chronic kidney disease, stage 3a
CPT/HCPCS: 36415; 80051; 81001; 82040; 82310; 82565; 82570; 82652; 83735; 83970; 84100; 84156; 84520; 85025

== ENCOUNTER 2024-09-22 12:19 | Outpatient (REF) | payer OTHER, SELFPAY ==
--- NOTE | ~2024-09-22 | US_ITS ---
CLINICAL HISTORY: CKD stage III Renal ultrasound Comparison: None Findings: The kidneys are increased in echotexture bilaterally. No hydronephrosis. The right kidney is normal in size, measuring 9.4 cm in length. 4 mm stone in the lower pole. 1.1 x 1.1 x 0.7 cm simple cyst in the lower pole. The left kidney is normal in size, measuring 9.9 cm in length. 7.5 x 5.3 x 5.5 cm cyst with a thin internal septation in the midportion. 1.4 x 2.3 x 1.7 cm simple cysts in the lower pole. Impression: Increased echogenicity of the kidneys is consistent with the given history of medical renal disease. This document has been electronically signed by: Susie Anna MD on 09/22/2024 21:16:34
--- OUTSIDE RECORDS SUMMARY | 2024-09-22 13:51 | XMS_ITS | Clinical Summary ---
Author Organization [facility] Address [address] [place] [address] Phone Care Team Providers Care Cotton Seed Culler Name Role Phone Anu Robbins MD Primary [...] mouth 1 (one) time each day Active loratadine (CLARITIN) 10 MG tablet Take 10 mg by mouth 1 (one) time each day 06/23/2021 Active Arnuity Ellipta 100 MCG/ACT aerosol powder INHALE 1 PUFF BY MOUTH EVERY 24 HOURS 02/25/2024 Active amLODIPine (NORVASC) 2.5 MG tablet Take 2.5 mg by mouth 1 (one) time each day 07/09/2024 Active Jardiance 25 MG tablet Take by mouth every morning 07/09/2024 Active Active Problems Problem Noted Date Diagnosed Date Stage 3a chronic kidney disease 08/12/2024 Type 2 diabetes mellitus wit h diabetic chronic kidney disease 03/14/2023 Hypertensive disorder 06/15/2020 Hyposmolality and/or hyponatremia 06/15/2020 Microalbuminuria 06/15/2020 Microscopic hematuria 06/15/2020 Encounters Date Type Department Care Team Description 08/19/2024 Orders Only [facility] [address] [place] [address] Bayron Chappell MD Stage 3a chronic kidney disease (HCC); Microalbuminuria; Microscopic hematuria; Type 2 diabetes mellitus with diabetic chronic kidney disease (HCC) 08/12/2024 1:45 PM EDT Office [facility] [address] [place] [address] Bayron Chappell MD Stage 3a chronic kidney disease (HCC) (Primary Dx); Microalbuminuria; Microscopic hematuria; Type 2 diabetes mellitus with diabetic chronic [...] Sign Reading Time Taken Comments Blood Pressure 114/70 08/12/2024 1:45 PM EDT Pulse 100 08/12/2024 1:45 PM EDT Temperature - - Respiratory Rate - - Oxygen Saturation 96% 08/12/2024 1:45 PM EDT Inhaled Oxygen Concentration - - Weight 54.8 kg (120 lb 12.8 oz) 08/12/2024 1:45 PM EDT Height 160 cm (5' 3 ) 01/10/2020 12:00 PM EDT Body Mass Index 21.4 01/10/2020 12:00 PM EDT Plan of Treatment Upcoming Encounters Date Type Department Care Team (Late st Contact Info) Description 11/29/2024 1:15 PM EDT Office Visit [facility] [address] [place] [address] Bayron Chappell MD [address] [address] Health Maintenance Due Date Last Done Comments [...] mellitus with diabetic chronic kidney disease (HCC) VITAMIN D 1,25 DIHYDROXY Routine 08/04/2024 3:20 PM EDT PTH, INTACT (HC) Routine 08/04/2024 3:20 PM [...] increase to 0.3 during normal . Urine specimen (specimen) Urine specimen obtained by clean catch procedure / Unknown 08/04/2024 3:37 PM EDT 08/04/2024 3:37 PM EDT us Bayron Chappell MD LAB URINE ORDERABLES Final Re sult [place] See order comments [place] [address] * (ABNORMAL) Urinalysis with microscopic (08/04/2024 3:37 PM EDT) Color Urine Yellow See orde r comments Appearance Urine Clear See order comments pH Urine 5.5 5.0 - 9.0 See order comments Glucose Urine >=1000(A) Negative mg/dL See order comments Blood, Urine Moderate (2+)(A) Negative See order comments Specific [place] Urine >=1.030(H) 1.005 - 1.025 See order comments Protein Urine Negative Neg-Trace mg/dL See order comments Ketones, Urine Trace Negative mg/dL See order comments Nitrite, Urine Negative Negative See o rder comments Leukocyte Esterase Urine Negative Negative See order comments RBC, Urine >20(A) 0 - 2 /HPF See orde r comments WBC 0-5 0 - 5 /HPF See order comments Squamous Epithelial, Urine 0-2 0 - 2 /HPF See order comments Bacteria, Urine None Seen None Seen See order comments Hyaline Casts, Urine 0-2 0 - 2 /LPF See order comments Urine specimen (specimen) Urine specimen obtained by clean catch procedure / Unknown 08/04/2024 3:37 PM EDT 08/04/2024 3:37 PM EDT Bayron Chappell MD LAB URINE ORDERABLES Edited R esult - Final Performing Organization Address [facility] Co de Phone Number [facility] See order comments [place] [address] * Creatinine (08/04/2024 3:20 PM EDT) Creatinine Serum 1.22 0.5 - 1.4 mg/dL See order comments eGFR (Calc) >60 See orde r comments Comment: Chronic Kidney Disease: ??Estimated GFR < 60 mL/min/1.73m2 Severe Kidney Disease: ??Estimated GFR < 15 mL/min/1.73m2 08/04/2024 3:20 PM EDT 08/04/2024 3:20 PM EDT Bayron Chappell MD LAB BLOOD ORDERABLES Final Re sult Performing Organization Address [facility] Co de Phone Number [place] See order comments [place] [address] * (ABNORMAL) PTH, Intact (08/04/2024 3:20 PM EDT) Parathyroid Hormone, Intact 86.1(H) 8.7 - 77.1 pg/mL See order comments 08/04/2024 3:20 PM EDT 08/04/2024 3:20 PM EDT Bayron Chappell MD LAB [id number] SOLICITED RESULTS Final Result Performing Organization Address [facility] de Phone Number AMY See order comments [place] [address] * Vitamin D 1,25 dihydroxy (08/04/2024 3:20 PM EDT) Pathologist [facility] Calcitriol(1,25 di-OH Vit D) 19 18 - 72 pg/mL See order comments Vitamin D3 125 (OH)2 19 pg/mL See order comments Vitamin D2 125 (OH)2 <8 pg/mL See order comments Comment: Vitamin D3, 1,25(OH)2 indicates both endogenous production and supplementation. Vitamin D2, 1,25(OH)2 is an indicator of exogenous sources, such as diet or supplementation. ??Interpretation and therapy are based on measurement of Vitamin D,1,25(OH)2, Total. This test was developed and its analytical performance characteristics have been determined by [facility], [place], [place]. It has not been cleared or approved by the FDA. This assay has been validated pursuant to the CLIA regulations and is used for clinical purposes. THIS TEST WAS PERFORMED AT: [employer]/[address] ?? VIRY VIZCARRA MD,PHD 08/04/2024 3:20 PM EDT 08/04/2024 3:20 PM EDT Bayron Chappell MD LAB BLOOD ORDERABLES Final Re sult Performing Organization Address [facility] Co de Phone Number [place] See order comments [place] [address] * (ABNORMAL) CBC and Differential (08/04/2024 3:20 PM EDT) Pathologist [facility] WBC 6.9 4.8 - 10.8 X10*3/uL See [...] order comments [place] [address] * (ABNORMAL) BUN (08/04/2024 3:20 PM EDT) BUN 29(H) 9 - 16 mg/dL See order comments 08/04/2024 3:20 PM EDT 08/04/2024 3:20 PM EDT us Bayron Chappell MD LAB BLOOD ORDERABLES Final Re sult Performing Organization Address [facility] de Phone Number [place] See order comments [place] [address] * Phosphorus (08/04/2024 3:20 PM EDT) Phosphorus, Serum 3.9 2.7 - 4.5 mg/dL See order comments Blood specimen (specimen) Venous blood / Unknown 08/04/2024 3:20 PM EDT 08/04/2024 3:20 PM EDT us Bayron Chappell MD LAB BLOOD ORDERABLES Final Re sult Performing Organization Address [facility] Phone Number [place] See order comments [place] [address] * Magnesium (08/04/2024 3:20 PM EDT) Magnesium 1.6 1.6 - 2.6 mg/dL See order comments Blood specimen (specimen) Venous blood / Unknown 08/04/2024 3:20 PM EDT 08/04/2024 3:20 PM EDT us Bayron Chappell MD LAB BLOOD ORDERABLES Final Re sult Performing Organization Address [facility] de Phone Number [place] See order comments [place] [address] * Calcium (08/04/2024 3:20 PM EDT) Calcium 9.9 8.4 - 10.2 mg/dL See order comments Blood specimen (specimen) Venous blood / Unknown 08/04/2024 3:20 PM EDT 08/04/2024 3:20 PM EDT us Bayron Chappell MD LAB BLOOD ORDERABLES Final Re sult Performing Organization Address [facility] Co de Phone Number [facility] See order comments [place] [address] * Albumin (08/04/2024 3:20 PM EDT) Pathologist [facility] Albumin 4.6 3.5 - 5.0 g/dL See order comments Blood specimen (specimen) Venous blood / Unknown 08/04/2024 3:20 PM EDT 08/04/2024 3:20 PM EDT Bayron Chappell MD LAB BLOOD ORDERABLES Final Re sult Performing Organization Address [facility] Co de Phone Number [place] See order comments [place] [address] * (ABNORMAL) Electrolyte panel (08/04/2024 3:20 PM EDT) Pathologist [facility] Sodium 139 135 - 145 mmol/L See order comments Potassium 5.2(H) 3.3 - 5.1 mmol/L See order comments Chloride 105 96 - 108 mmol/L See order comments Bicarbonate (CO2) 24 22 - 29 mmol/L See order comments Anion Gap 15 12 - 20 See order comments 08/04/2024 3:20 PM EDT 08/04/2024 3:20 PM EDT Bayron Chappell MD LAB BLOOD ORDERABLES Final Re [facility] Performing Organization Address [facility] de Phone Number [place] See order comments [place] [address] * Hemoglobin A1c (12/07/2019 12:59 PM EDT) Pathologist [facility] Estimated Average Glucose 157 MG/DL AMY Comment: eAG = Estimated average glucose which is %A1C expressed as average glucose, using the formula of the [id number] Average Glucose study (ADAG), Diabetes Care, Vol.31,#8, 2007 Hemoglobin A1C 7.1 % AMY Comment: [...] Robbins MD LAB BLOOD ORDERABLES Final Result AMY from Last 3 Months or Most Recently Relevant to Health Maintenance Insurance [facility] ([id number]) [facility] ([id number]) [place] [address] Care Teams Cotton Seed Culler Relationship Specialty Start Date End Date Anu Robbins MD [address] [place] [address] PCP - General 04/24/20
== END 2024-09-22 12:20 | disposition home or self-care (01) ==
LOC: HO.US 12:19
PROVIDERS: PCP Internal Medicine; Visit Provider Internal Medicine Nephrology
DX: N18.31 Chronic kidney disease, stage 3a (principal)
CPT/HCPCS: 76775

== ENCOUNTER → 2024-09-22 12:41 | Outpatient (BNV) | payer OTHER, SELFPAY | PROVIDERS: PCP Internal Medicine; Visit Provider Radiology Diagnostic Radiology | DX: N18.30 Chronic kidney disease, stage 3 unspecified (principal) | CPT/HCPCS: 76775 ==

== ENCOUNTER 2024-10-20 15:08 | Outpatient (REF) | payer OTHER, SELFPAY ==
--- OUTSIDE RECORDS SUMMARY | 2024-10-20 15:27 | XMS_ITS | Clinical Summary ---
Author Organization [facility] Address [address] [place] [address] Care Team Providers Care Contracting Officer Name Role Phone Unavailable Primary Care Provider [...] Panel 1965 SDOH Screening 1965 Sigmoidoscopy 1965 Disability Screening 1965 Alcohol/Substance Use Screening 1977 Hepatitis C Screening 1983 Hepatitis B Vaccines (1 of 3 - 19+ 3-dose series) 1984 COVID-19 Vaccine ( season) 2023 01/10/2022, 08/13/2021, 02/09/2021, Additional history exists Dental X-Ray: Bitewings 01/30/2024 01/28/2023 Tobacco Screening 02/11/2024 02/10/2023 Influenza Vaccine (#1) 2024 , 01/02/2021, 12/16/2019, Additional history exists Dental X-Ray: Full Mouth 01/29/2026 01/28/2023 DTaP/Tdap/Td Vaccines (2 - Td or Tdap) 01/09/2031 01/09/2021 RSV Patients and Patients Aged 60 years or older (1 - 1-dose 75+ series) 2040 Zoster Vaccines Completed 03/27/2021, 02/13, 01/09/2021 Pneumococcal Vaccine: 50+ Years Completed 04/03/2022 HIB Vaccines Aged Out No longer eligi [...] patient's age to complete this topic Meningococcal B Vaccine Aged Out No l onger eligible based on patient's age to complete [...] Most Recently Relevant to Health Maintenance Insurance [facility]
--- OUTSIDE RECORDS SUMMARY | 2024-10-20 15:27 | XMS_ITS | Patient Health Record ---
Author Organization [facility] Address [address] [place] [address] Care Team Providers Care Coppersmith Helper Name Role Phone Rosendo Anu Primary Care Provider Unavailab Juan Luis Vigil Jr Unavailable [phone] Reason For Referral No Information Medications Medication SIG (Take, Route, Frequency, Duration) Notes Start Date End Date Status Colyte with Flavor Packs 240 GM As directed Orally Over the specified time. for 1 day(s) Active ProAir HFA 108 (90 Base) MCG/ACT 2 puffs as needed Inhalation every 4 hrs Active Lisinopril-hydroCHLOROthiaz claudine 20-12.5 MG 1 tablet Orally Once a day Active Atorvastatin Calcium 20 MG 1 tablet Oral ly Once a day Active metFORMIN HCl 850 MG 1 tablet with a prabhu l Orally Twice a day Active Qvar 80 MCG/ACT 1 puff Inhalation Tw ice a day Active Januvia 100 MG 1 tablet Orally Once a day Active Loratadine 10 MG 1 tablet Orally Once a day Active Social History Tobacco Use: Social History Observation Description Date Details (start date - stop date) Never Smoker NA - NA Tobacco Use/Smoking Question Answer Notes Patient is a nonsmoker Alcohol Screen Question Answer Notes Did you have a drink contain ing alcohol in the past year? Yes How often did you have a dri nk containing alcohol in the past year? Monthly or less (1 point) How many drinks did you have on a typical day when you were drinking in the past year? 1 or 2 drinks (0 point) How often did you have 6 or more drinks on one occasion in the past year? Never (0 point) Points 1 Interpretation Negative Problems Problem Type SNOMED Code ICD Code Onset Dates Problem Status W/U Status Risk Notes Problem 884334713 Colon cancer screening (Z12.11) Active confirmed Problem 886048257 Long-term curren t use of high risk medication other than anticoagulant (Z79.899) Active confirmed Plan Of Treatment Future Test Test Name Order Date COLONOSCOPY 12/11/2016 Insurance Providers Payer Name Payer Address Payer Phone Subscriber Number Group Number Insured Name Patient Relationship to Insured Coverage Start Date Coverage End Date [facility] [address] [place] [address] [id number] MJ MORALES Self - patient is the insured MEDICAID OF [facility] [address] [place] [address] [id number] MJ MORALES Self - patient is the insured Medical (General) History Medical History History ICD Code diabetes mellitus hypertension elevated cholesterol asthma gastroesophageal reflux disease environmental allergies Surgical History Surgery Date(Month/Year) tonsillectomy
--- OUTSIDE RECORDS SUMMARY | 2024-10-20 15:27 | XMS_ITS | Clinical Summary ---
Author Organization [facility] Address [address] [place] [address] Phone Care Team Providers Care Oral Surgery Assistant Name Role Phone Anu Robbins MD Primary [...] Only [facility] [address] [place] [address] Bayron Chappell MD Stage 3a chronic kidney disease (HCC); Microalbuminuria; Microscopic hematuria; Type 2 diabetes mellitus with diabetic chronic kidney disease (HCC) 08/12/2024 1:45 PM EDT [facility] [address] [place] [address] Bayron Chappell MD Stage 3a chronic kidney [...] Visit [facility] [address] [place] [address] Bayron Chappell MD [address] [address] Health Maintenance Due Date Last Done Comments [...] Diabetes: Visual Foot Exam 03/14/2023 Influenza Vaccine (#1) 2024 Procedures Procedure Name Priority Date/Time Associated [...] order comments [place] [address] * (ABNORMAL) Urinalysis with microscopic (08/04/2024 3:37 PM EDT) Color Urine Yellow See orde r comments Appearance Urine Clear See order comments pH Urine 5.5 5.0 - 9.0 See order comments Glucose Urine >=1000(A) Negative mg/dL See order comments Blood, Urine Moderate (2+)(A) Negative See order comments Specific [place] Urine >=1.030(H) 1.005 - 1.025 See order [...] R esult - Final Performing Organization Address [facility] de Phone Number [place] See order comments [place] [address] * Creatinine (08/04/2024 3:20 PM EDT) Creatinine Serum 1.22 0.5 - 1.4 mg/dL See order comments eGFR (Calc) >60 See orde r comments Comment: Chronic Kidney Disease: Estimated GFR < 60 mL/min/1.73m2 Severe Kidney Disease: Estimated GFR < 15 mL/min/1.73m2 08/04/2024 3:20 PM EDT 08/04/2024 3:20 PM EDT Bayron Chappell MD LAB BLOOD ORDERABLES Final Re sult Performing Organization Address [facility] Co de Phone Number [facility] See order comments [place] [address] * (ABNORMAL) PTH, Intact (08/04/2024 3:20 PM EDT) Parathyroid Hormone, Intact 86.1(H) 8.7 - 77.1 pg/mL See order comments 08/04/2024 3:20 PM EDT 08/04/2024 3:20 PM EDT Bayron Chappell MD LAB [id number] SOLICITED RESULTS Final Result Performing Organization Address [facility] Co de Phone Number [place] See order comments [place] [address] * Vitamin D 1,25 dihydroxy (08/04/2024 3:20 PM EDT) Pathologist [facility] Calcitriol(1,25 di-OH Vit D) 19 18 - 72 pg/mL See order comments Vitamin D3 125 (OH)2 19 pg/mL See order comments Vitamin D2 125 (OH)2 <8 pg/mL See order comments Comment: Vitamin D3, 1,25(OH)2 indicates both endogenous production and supplementation. Vitamin D2, 1,25(OH)2 is an indicator of exogenous sources, such as diet or supplementation. Interpretation and therapy are based on measurement of Vitamin D,1,25(OH)2, Total. This test was developed and its analytical performance characteristics have been determined by [employer] [place], [place]. It has not been cleared or approved by the FDA. This assay has been validated pursuant to the CLIA regulations and is used for clinical purposes. THIS TEST WAS PERFORMED AT: [employer]/[address] VIRY VIZCARRA MD,PHD 08/04/2024 3:20 PM EDT 08/04/2024 3:20 PM EDT Bayron Chappell MD LAB BLOOD ORDERABLES Final Re sult [place] See order comments [place] [address] * (ABNORMAL) CBC and Differential (08/04/2024 3:20 PM EDT) Pathologist [facility] WBC 6.9 4.8 - 10.8 X10*3/uL See [...] order comments [place] [address] * (ABNORMAL) BUN (08/04/2024 3:20 PM EDT) BUN 29(H) 9 - 16 mg/dL See order comments 08/04/2024 3:20 PM EDT 08/04/2024 3:20 PM EDT us Bayron Chappell MD LAB BLOOD ORDERABLES Final Re sult Performing Organization Address [facility] Phone Number [place] See order comments [place] [address] * Phosphorus (08/04/2024 3:20 PM EDT) Phosphorus, Serum 3.9 2.7 - 4.5 mg/dL See order comments Blood specimen (specimen) Venous blood / Unknown 08/04/2024 3:20 PM EDT 08/04/2024 3:20 PM EDT us Bayron Chappell MD LAB BLOOD ORDERABLES Final Re sult Performing Organization Address [facility] Phone Number [place] See order comments [place] [address] * Magnesium (08/04/2024 3:20 PM EDT) Magnesium 1.6 1.6 - 2.6 mg/dL See order comments Blood specimen (specimen) Venous blood / Unknown 08/04/2024 3:20 PM EDT 08/04/2024 3:20 PM EDT us Bayron Chappell MD LAB BLOOD ORDERABLES Final Re sult Performing Organization Address [facility] Phone Number [place] See order comments [place] [address] * Calcium (08/04/2024 3:20 PM EDT) Calcium 9.9 8.4 - 10.2 mg/dL See order comments Blood specimen (specimen) Venous blood / Unknown 08/04/2024 3:20 PM EDT 08/04/2024 3:20 PM EDT us Bayron Chappell MD LAB BLOOD ORDERABLES Final Re sult Performing Organization Address [facility]/State/ZIP Co de Phone Number [place] See order comments [place] [address] * Albumin (08/04/2024 3:20 PM EDT) Albumin 4.6 3.5 - 5.0 g/dL See order comments Blood specimen (specimen) Venous blood / Unknown 08/04/2024 3:20 PM EDT 08/04/2024 3:20 PM EDT Bayron Chappell MD LAB BLOOD ORDERABLES Final Re sult Performing Organization Address [facility] Co de Phone Number [place] See order comments [place] [address] * (ABNORMAL) Electrolyte panel (08/04/2024 3:20 PM EDT) Sodium 139 135 - 145 mmol/L See [...] ORDERABLES Final Re sult Performing Organization Address [facility] de Phone Number [place] See order comments [place] [address] * Hemoglobin A1c (12/07/2019 12:59 PM EDT) Estimated Average Glucose 157 MG/DL LUIS ENRIQUEELE Comment: eAG = Estimated average glucose which is %A1C expressed as average glucose, using the formula of the [id number] Average Glucose study (ADAG), Diabetes Care, Vol.31,#8, 2007 Hemoglobin A1C 7.1 % AMY Comment: Hemoglobin A1C Reference Range Adults: 4.8 - 6.0 % Non diabetic: < 6.0 % Goal: < 7.0 % Additional Action Suggested: > 8.0 % Note: Hemoglobin A1c results are invalid for patients with abnormal amounts of HbF. Blood transfusions may impact the HbA1c concentration in the patient sample. 12/07/2019 12:5 9 PM EDT Anu Robbins MD LAB BLOOD ORDERABLES Final Result AMY from Last 3 Months or Most Recently Relevant to Health Maintenance Insurance [facility] ([id number]) [facility] ([id number]) Care Teams Oral Surgery Assistant Relationship Specialty Start Date End Date Anu Robbins MD [address] [place] [address] [address] [place], [place] PCP - General 04/24/20
[2024-10-20 17:17] LABS: Hemoglobin A1C 152.6407 umol/L; Total Hemoglobin (HGBA1C) 3770.5722 umol/L
[2024-10-20 17:41] LABS: Alanine Aminotransferase 35 U/L (0-40); Albumin Level 4.7 g/dL (3.5-5.0); Alkaline Phosphatase 58 U/L (39-117); Anion Gap 13 (12-20); Aspartate Amino Transferase 29 U/L (5-37); Blood Urea Nitrogen 24 mg/dL (9-16); Calcium 9.9 mg/dL (8.4-10.2); Carbon Dioxide 27 mmol/L (22-29); Chloride 105 mmol/L (96-108); Estimated Glomerular Filt Rate > 60; Potassium 4.9 mmol/L (3.3-5.1); Sodium 140 mmol/L (135-145); Total Protein 7.1 g/dL (6.5-8.0)
== END 2024-10-20 15:09 | disposition home or self-care (01) ==
LOC: HO.LAB 15:08
PROVIDERS: PCP Internal Medicine; Visit Provider Internal Medicine
DX: E11.9 Type 2 diabetes mellitus without complications (principal); J45.909 Unspecified asthma, uncomplicated; R63.4 Abnormal weight loss; R80.8 Other proteinuria
CPT/HCPCS: 36415; 80053; 83036

== ENCOUNTER 2024-11-18 10:32 | Outpatient (REF) | payer OTHER, SELFPAY ==
--- OUTSIDE RECORDS SUMMARY | 2024-11-18 11:08 | XMS_ITS | Clinical Summary ---
Author Organization [facility] Address [address] [facility] [address] [place] [address] Care Team Providers Care Travel Money Advisor Name Role Phone Unavailable Primary Care Provider [...] Relevant to Health Maintenance Insurance [facility]
--- OUTSIDE RECORDS SUMMARY | 2024-11-18 11:08 | XMS_ITS | Clinical Summary ---
Author Organization [facility] Address [address] [place] [address] Phone Care Team Providers Care Custodial Laborer Name Role Phone Anu Robbins MD Primary Care Provider [phone] Allergies Active Allergy Reactions Criticality Noted Date [...] Only [facility] [address] [place] [address] Bayron Chappell MD Stage 3a chronic kidney [...] Visit [facility] [address] [place] [address] Bayron Chappell MD [address] [facility] [address] [place] [phone] Health Maintenance Due Date Last Done Comments [...] average glucose, using the formula of the [id number] Average Glucose study (ADAG), Diabetes Care, Vol.31,#8, [...] Most Recently Relevant to Health Maintenance Insurance [facility] ([id number]) [facility] ([id number]) Care Teams Custodial Laborer Relationship Specialty Start Date End Date Anu Robbins MD [address] [place] [address] [place] PCP - General 04/24/20
--- OUTSIDE RECORDS SUMMARY | 2024-11-18 11:08 | XMS_ITS | Patient Health Record ---
Author Organization [facility] Address [address] [place] [address] Care Team Providers Care Marine Water Tender Name Role Phone Rosendo Anu Primary Care Provider Unavailab Juan Luis Vigil Jr Unavailable Reason For Referral No Information Medications Medication [...] Problem Status W/U Status Risk Notes Problem [id number] Colon cancer screening (Z12.11) Active confirmed Problem [id number] Long-term curren t use of high risk medication other than anticoagulant (Z79.899) Active confirmed Plan Of Treatment Future Test Test Name Order Date COLONOSCOPY 12/11/2016 Insurance Providers Payer Name Payer Address Payer Phone Subscriber Number Group Number Insured Name Patient Relationship to Insured Coverage Start Date Coverage End Date [facility] [address] [place] [address] [id number] MJ MORALES Self - patient is the insured MEDICAID OF [facility] [address] [place] [address] [id number] MJ MORALES Self - patient is the insured Medical (General) History Medical History History ICD Code diabetes mellitus hypertension elevated cholesterol asthma gastroesophageal reflux disease environmental allergies Surgical History Surgery Date(Month/Year) tonsillectomy
[2024-11-18 11:32] LABS: Anion Gap 11 (12-20); Blood Urea Nitrogen 21 mg/dL (9-16); Calcium 9.5 mg/dL (8.4-10.2); Carbon Dioxide 29 mmol/L (22-29); Chloride 104 mmol/L (96-108); Estimated Glomerular Filt Rate > 60; Potassium 4.7 mmol/L (3.3-5.1); Sodium 139 mmol/L (135-145)
[2024-11-18 12:15] LABS: Protein/Creatinine Ratio, Ur 0.07 (<0.2); Total Protein Urine Random 13 mg/dL (<12)
== END 2024-11-18 10:33 | disposition home or self-care (01) ==
LOC: HO.LAB 10:32
PROVIDERS: PCP Internal Medicine; Visit Provider Internal Medicine Nephrology
DX: N18.31 Chronic kidney disease, stage 3a (principal); E11.22 Type 2 diabetes mellitus with diabetic chronic kidney disease; R80.9 Proteinuria, unspecified; R31.29 Other microscopic hematuria
CPT/HCPCS: 36415; 80051; 82310; 82565; 82570; 84156; 84520

== ENCOUNTER 2025-01-19 15:11 | Outpatient (REF) | payer OTHER, SELFPAY ==
[2025-01-19 16:05] LABS: Hemoglobin A1C 150.2802 umol/L; Total Hemoglobin (HGBA1C) 3502.2637 umol/L
[2025-01-19 16:16] LABS: Alanine Aminotransferase 32 U/L (0-40); Albumin Level 4.6 g/dL (3.5-5.0); Alkaline Phosphatase 60 U/L (39-117); Anion Gap 12 (12-20); Aspartate Amino Transferase 34 U/L (5-37); Blood Urea Nitrogen 18 mg/dL (9-16); Calcium 9.6 mg/dL (8.4-10.2); Carbon Dioxide 26 mmol/L (22-29); Chloride 104 mmol/L (96-108); Estimated Glomerular Filt Rate > 60; Potassium 4.5 mmol/L (3.3-5.1); Sodium 137 mmol/L (135-145); Total Protein 6.9 g/dL (6.5-8.0)
== END 2025-01-19 15:12 | disposition home or self-care (01) ==
LOC: HO.LAB 15:11
PROVIDERS: PCP Internal Medicine; Visit Provider Internal Medicine
DX: E11.9 Type 2 diabetes mellitus without complications (principal); E78.00 Pure hypercholesterolemia, unspecified; M79.18 Myalgia, other site; R80.8 Other proteinuria
CPT/HCPCS: 36415; 80053; 82550; 83036